=== PATIENT | female | born 1985 | race African-American/Black ===

== ENCOUNTER 2016-09-09 19:58 | Emergency (ER) | payer MEDICAID ==
[2016-09-09 20:53] VITALS: BP 139/78; PULSE 89; RESP 18; TEMP 98.1; O2SAT 97
--- NOTE | 2016-09-09 22:23 | UCPHY ---
H & P Time Seen by Provider: 09/09/16 20:36 Patient Type: New HPI/ROS: HPI Tingling in hands and feet. 31-year-old female by private vehicle. She reports that she has had intermittent tingling in both hands and both feet ongoing for 10 days to 2 weeks now. She reports that it is usually worse at night. She denies any loss of sensation or weakness in her extremities. She denies any other complaints. She is not diabetic. Past medical history includes pulmonary embolism for which she takes Xarelto. She has a primary care physician at [facility] who prescribes this medication. ROS: Constitutional: No fever, no chills. No weakness. Eyes: No discharge. No changes in vision. ENT: No sore throat. No nasal congestion or rhinorrhea. Respiratory: No cough. No shortness of breath. Cardiac: No chest pain, no palpitations. Gastrointestinal: No abdominal pain, no vomiting, no diarrhea. Genitourinary: No hematuria. No dysuria or increased frequency with urination. Musculoskeletal: No back pain. No neck pain. No myalgias or arthralgias. Skin: No rashes. Neurological: No headache. No focal weakness or loss of sensation. As above. Past medical history: As above. Social history: Smoker. Physical Exam: General Appearance: Alert, no distress. This patient is responding to questions appropriately and in full sentences. This patient appears well- hydrated and well-nourished. Eyes: Pupils equal and round no pallor or injection. No lid edema, erythema or injection. Neurological: Motor sensory function is intact in all myotomes in dermatomes of the bilateral upper and bilateral lower extremities. Cranial nerves are normal. Gait is normal. Skin: Warm and dry, no rashes. Musculoskeletal: Neck is supple and nontender. No pain on flexion of the neck. Extremities are symmetrical. All joints range without pain or impingement. Psychiatric: No agitation. No depression. Database: EKG: Imaging: Procedures: Emergency department course: After my evaluation, I reviewed the differential diagnosis regarding this patient complaints. Plan will be to have her follow up with Neurology, Dr. Jalen Hooper or 1 of his partners for re-evaluation this week. She is in agreement with this plan. I did discuss anxiety medications. She does not want this at this time. Return to emergency department precautions were reviewed. All of her questions were answered. She was discharged in good condition. Differential Diagnosis: The differential diagnosis on this patient includes but is not limited to anxiety reaction, peripheral neuropathy, MS. This represents a partial list of diagnoses considered. These considerations are based on history, physical exam , past history, reassessment and diagnostic testing. Smoking Status: Current every day smoker Constitutional: Initial Vital Signs Temperature (C) 36.7 C 09/09/16 20:50 Heart Rate 89 09/09/16 20:50 Respiratory Rate 18 09/09/16 20:50 Blood Pressure 139/78 H 09/09/16 20:50 O2 Sat (%) 97 09/09/16 20:50 O2 Delivery Mode Room Air Allergies/Adverse Reactions: ibuprofen [From Motrin] Allergy (Verified 09/09/16 20:48) Penicillins Allergy (Verified 09/09/16 20:48) Home Medications: Medication Instructions Recorded Omeprazole 09/09/16 Xarelto 09/09/16 Departure - Departure Disposition: Home, Routine, Self-Care Clinical Impression: Tingling in extremities Condition: Good Instructions: Paresthesia (ED) Additional Instructions: Read and follow provided instructions. Follow-up with Dr. Jalen Hooper of the neurology service this week as discussed for re-evaluation and any further management. You can see him or anyone of his partners. Continue taking your medication as prescribed. Return to the emergency department for worsening symptoms or other serious concerns. Referrals: NONE *PRIMARY CARE P,. [Primary Care Provider] - As per Instructions - PQRS PQRS Measurement: Not applicable.
== END 2016-09-09 22:45 | disposition home or self-care (01) ==
LOC: CED 19:58
DX: R20.2 Paresthesia of skin (principal); Z86.711 Personal history of pulmonary embolism; Z79.01 Long term (current) use of anticoagulants
CPT/HCPCS: 99203-PO; G0463-PO

== ENCOUNTER 2016-09-15 21:17 | Emergency (ER) | payer MEDICAID ==
--- NOTE | 2016-09-15 22:07 | UCPHY ---
H & P Time Seen by Provider: 09/15/16 21:54 Patient Type: Established HPI/ROS: CHIEF COMPLAINT: Black stools. Worry about Bismuth with the Xarelto. HISTORY OF PRESENT ILLNESS: The patient is a 31 year old female presenting with dark stools for the past 3 days. Last week she was diagnosed with H-pylori , she was started on Flagyl and tetracycline. She has a history of pulmonary embolism for which she takes Xarelto 15mg twice per day. She took 2 doses of Pepto-Bismol 3 days ago (Rx'd qid) for abdominal bloating and soft stool as part of the H pylroi Rx. Since stopping the Pepto-Bismol she has continued to have black/greyish stools, as it has been 3 d, she is worried. REVIEW OF SYSTEMS: Constitutional: No fever, no chills.. Gastrointestinal: No nausea vomiting or diarrhea. No abdominal pain. Skin: No rashes. Past Medical/Surgical History: Pulmonary embolism, H-pylori. Social History: Cigarette smoker. Smoking Status: Current every day smoker Physical Exam: General Appearance: Alert, no distress. Afebrile. Normal phonation. No respiratory distress. Apprehensive. Eyes: Pupils equal and round no pallor or injection. No palloer or icterus Respiratory: There are no retractions, lungs are clear to auscultation. Abdomen: mild epigastric tenderness. Rectal: No masses, no external hemorrhoids. Stark stool in vault, submitted for occult. . Skin: Warm and dry, no rashes. Psychiatric: Apprehensive, but there is no agitation Constitutional: Initial Vital Signs Temperature (C) 36.9 C 09/15/16 22:05 Heart Rate 92 09/15/16 22:05 Respiratory Rate 16 09/15/16 22:05 Blood Pressure 129/79 H 09/15/16 22:05 O2 Sat (%) 97 09/15/16 22:05 O2 Delivery Mode Room Air Allergies/Adverse Reactions: ibuprofen [From Motrin] Allergy (Verified 09/15/16 22:10) Penicillins Allergy (Verified 09/15/16 22:10) Home Medications: Medication Instructions Recorded Omeprazole 09/09/16 Xarelto 09/09/16 Lorazepam 09/15/16 Metronidazole 09/15/16 Tetracycline 09/15/16 Medical Decision Making ED Course/Re-evaluation: The patient presents with black stools for the past days. The patient has a history of PE and is anticoagulated on Xarelto. She was recently diagnosed with H-pylori and started on Flagyl. The patient took 2 doses of peptobismol 3 days ago. She has since continued to have black stools. Rectal exam was performed. Patient has no external hemorrhoids. She has stark colored stool in the vault that was sent for Hemoccult. Hemoccult is negative. Plan to discharge home with instructions to continue her regular medications. Her concern is apt regarding Bi salicylate with Xarelto, non signs of GI bleed. will continue Rx. Differential Diagnosis: Differential diagnosis includes but is not limited to Gi Bleed, Bi stools, alterationin bowel habit, dysentery, giardiasis. Departure - Departure Disposition: Home, Routine, Self-Care Clinical Impression: black stools from peptobismol Diarrhea Qualifiers: Diarrhea type: unspecified type Qualified Code(s): R19.7 - Diarrhea, unspecified Condition: Good Instructions: Acute Diarrhea (ED) Additional Instructions: No change in treament Referrals: Darlene Vasquez MD [Primary Care Provider] - As per Instructions - PQRS PQRS Measurement: NA Report Scribed for: Marino Herring Report Scribed by: Aida Gutierrez Date of Report: 09/15/16 Time of Report: 22:08
[2016-09-15 22:19] VITALS: RESP 16; TEMP 98.4; O2SAT 97
[2016-09-15 23:10] VITALS: BP 114/75; PULSE 89
== END 2016-09-15 23:05 | disposition home or self-care (01) ==
LOC: CED 21:17
DX: R19.5 Other fecal abnormalities (principal); T47.6X5A Adverse effect of antidiarrheal drugs, initial encounter; Z86.711 Personal history of pulmonary embolism; Z79.01 Long term (current) use of anticoagulants; B96.81 Helicobacter pylori [H. pylori] as the cause of diseases classified elsewhere
CPT/HCPCS: 82270-PO; G0463-PO

== ENCOUNTER → 2016-09-19 | Outpatient (CLI) | payer MEDICAID | LOC: FIMAGING 15:26 | PROVIDERS: ATTEND Family Medicine | DX: R22.32 Localized swelling, mass and lump, left upper limb (principal); Z86.711 Personal history of pulmonary embolism ==

== ENCOUNTER 2016-09-22 20:08 | Emergency (ER) | payer MEDICAID ==
[2016-09-22 20:19] VITALS: BP 129/77; PULSE 87; RESP 16; TEMP 98.2; O2SAT 98
[2016-09-22] MEDS ORDERED: IPRATROPIUM/ALBUTEROL 3 ML DEYVIAL IH ONE (20:44)
[2016-09-22] MEDS ORDERED: ALBUTEROL INH PREPACK MDI TAKEHOME ONE (21:26)
--- NOTE | 2016-09-22 21:41 | UCPHY ---
H & P Time Seen by Provider: 09/22/16 20:30 Patient Type: Established HPI/ROS: This patient reports a light cough with nasal congestion for the past 5 days and causing some slight chest pressure the concerns her because she was recently diagnosed with a pulmonary embolism 1 month ago [facility]. She reports compliance with her Xarelto and notes no significant dyspnea this episode but because recent history she is anxious. She does have a history of asthma but has not had asthma exacerbation 2 years and currently does not have an inhaler. She reports that discomfort in her chest as 6/10 and admits that it does feel bronchial to her. ROS: No fevers. No significant fatigue. HEENT: Nasal congestion but no other HEENT complaints. Pulmonary: No pleuritic pain. No significant dyspnea. Cardiovascular: No lightheadedness. No lower extremity swelling or pain. No heart palpitations. 10 point ROS is otherwise negative. Past Medical/Surgical History: Pulmonary embolism diagnosed 1 month ago thought to be secondary to a combination of smoking and control pills. She has no off the control pill and quit smoking. H pylori currently under treatment with antibiotics and omeprazole regimen. Mild asthma Smoking Status: Former smoker Physical Exam: Her vital signs are all normal including respiratory rate is 16 and O2 sat of 98 % on room air General Appearance: Pleasant young female Alert, no distress. Eyes: Pupils equal and round no pallor or injection. ENT, Mouth: Mucous membranes moist. Respiratory: Clear to auscultation. With cough she has a very faint expiratory wheeze. No rales or rhonchi. No increased work of breathing Cardiovascular: Regular rate and rhythm. No leg edema or tenderness. Gastrointestinal: Abdomen is soft and nontender Neurological: Alert with no focal deficits Skin: Warm and dry, no rashes. Musculoskeletal: Neck is supple nontender. Extremities are symmetrical, full range of motion. Psychiatric: Mood and affect normal DIFFERENTIAL DIAGNOSIS: After history and physical exam differential diagnosis was considered for URI with mild asthma exacerbation. Musculoskeletal pain, doubt PE related complications, doubt pneumonia Constitutional: Initial Vital Signs Temperature (C) 36.8 C 09/22/16 20:14 Heart Rate 87 09/22/16 20:14 Respiratory Rate 16 09/22/16 20:14 Blood Pressure 129/77 H 09/22/16 20:14 O2 Sat (%) 98 09/22/16 20:14 O2 Delivery Mode Room Air Allergies/Adverse Reactions: ibuprofen [From Motrin] Allergy (Verified 09/22/16 20:12) Penicillins Allergy (Verified 09/22/16 20:12) Home Medications: Medication Instructions Recorded Omeprazole 09/09/16 Xarelto 09/09/16 Lorazepam 09/15/16 Metronidazole 09/15/16 Tetracycline 09/15/16 Albuterol Hfa Anes Only [Proair 2 puffs IH Q4 PRN #1 mdi 09/22/16 Hfa Icu (*)] Fluticasone Hfa 220 Mcg [Flovent 2 puffs IH DAILY #1 mdi 09/22/16 220 MCG Hfa MDI (*)] MDM/Departure - MDM Diagnostics: Her initial peak flow slightly low at 400 with a predicted of 450 DuoNeb with resolution of pressure feeling in her chest. She felt more relaxed and feels that the cause of her symptoms was mild asthma. Given compliance with his or [place] and completely normal vital signs with no pleuritic pain and complete relief of her symptoms with a simple DuoNeb in the presence of coryza I feel that her diagnosis is a viral URI with mild asthma exacerbation and I counseled her regarding this. She is comfortable with plan to go home with albuterol and Flovent. She understands the need to go the emergency department if she developed any significant recurrence or worsening of symptoms despite the treatment plan. Medications Given: Discontinued Medications Albuterol Sulfate (Proventil Inh Prepack) 1 mdi TAKEHOME EDNOW ONE Stop: 09/22/16 21:27 Last Admin: 09/22/16 21:49 Dose: 1 mdi Albuterol/Ipratropium (Duoneb) 3 ml IH EDNOW ONE Stop: 09/22/16 20:45 Last Admin: 09/22/16 20:50 Dose: 3 ml - Depart Disposition: Home, Routine, Self-Care Clinical Impression: Asthma exacerbation, Viral URI Condition: Good Instructions: Albuterol (By breathing) Additional Instructions: Diagnosis: 1. URI 2. Asthma exacerbation Plan: Humidifier Albuterol inhaler for cough, wheeze or shortness of breath If your symptoms persist beyond the next 3-5 days despite the albuterol, then start the Flovent as well intake Flovent for 10-14 days. Continue your other medications as prescribed Go the emergency department for any significant worsening despite the treatment plan Prescriptions: Albuterol Hfa Anes Only [Proair Hfa Icu (*)] 2 puffs IH Q4 PRN #1 mdi PRN Reason: Wheezing Fluticasone Hfa 220 Mcg [Flovent 220 MCG Hfa MDI (*)] 2 puffs IH DAILY #1 mdi Referrals: Darlene Vasquez MD [Primary Care Provider] - As per Instructions - PQRS PQRS Measurement: NA
== END 2016-09-22 21:51 | disposition home or self-care (01) ==
LOC: CED 20:08
DX: J06.9 Acute upper respiratory infection, unspecified (principal); J45.901 Unspecified asthma with (acute) exacerbation; Z86.711 Personal history of pulmonary embolism; Z87.891 Personal history of nicotine dependence
CPT/HCPCS: 99214-PO; G0463-PO

== ENCOUNTER → 2016-09-23 | Outpatient (CLI) | payer MEDICAID ==
[~2016-09-23] MED LIST: GADOBUTROL 10 ML VIAL IVP ONE
== END ==
LOC: FIMAGING 12:18
PROVIDERS: ATTEND Physician Assistant Medical
DX: R20.0 Anesthesia of skin (principal); R20.2 Paresthesia of skin; R29.898 Other symptoms and signs involving the musculoskeletal system; I26.99 Other pulmonary embolism without acute cor pulmonale
CPT/HCPCS: A9585

== ENCOUNTER 2016-10-18 16:49 | Emergency (ER) | payer MEDICAID ==
--- NOTE | 2016-10-18 17:35 | EDPHY ---
H & P Time Seen by Provider: 10/18/16 17:22 HPI/ROS: CHIEF COMPLAINT: Eye blurriness and pain HISTORY OF PRESENT ILLNESS: The patient is a 31 y/o female, with a history of anxiety and recent diagnosis of MS, complaining of worsening left eye blurriness and pain. She was diagnosed with multiple sclerosis 3 weeks ago. She has a 6 week h/o symptoms including extremity paresthesias and is followed by Dr. Hooper' clinic. She developed left eye blurriness a few days ago and was evaluated by neurologist REBECCA Lara. He recommended treating for allergies, but following it closely for any progression. This afternoon she woke from a nap with left eye pain and blurriness that did not resolve with eye drops. Her neurologist referred her to the ED for MRI imaging. The blurriness has resolved , but she continues to have pain around and behind her left eye. She notes she took a 50mg dose of her Zoloft last night and developed significant anxiety that caused her to go to the ED. REVIEW OF SYSTEMS: Constitutional: No fever, no chills Eyes: see HPI ENT: No sore throat Respiratory: No cough, no shortness of breath Cardiac: No chest pain Gastrointestinal: No nausea, no vomiting, no abdominal pain Genitourinary: No hematuria, no dysuria Musculoskeletal: No leg pain or swelling Skin: No rash Neurological: see HPI Psychiatric: see HPI Past Medical/Surgical History: PMH includes: 1. Multiple sclerosis - Tecfidera, Zoloft 2. Anxiety 3. PE Prior medical records reviewed including [facility] [place]/09/16 for paresthesias and Brain MRI 09/23/16, which showed probable MS. Social History: Former smoker. Neurology: REBECCA Lara with Dr. Hooper Smoking Status: Former smoker Physical Exam: General Appearance: Alert, anxious Eyes: Pupils equal and round, no conjunctival pallor or injection, EOMI ENT, Mouth: Mucous membranes moist Neck: Normal inspection Respiratory: Lungs are clear to auscultation Cardiovascular: Regular rate and rhythm Gastrointestinal: Abdomen is soft and non-tender Neurological: A&O, CN II-XII intact, motor/sensory intact, normal gait Skin: Warm and dry, no rash Extremities: Nontender, no pedal edema Psychiatric: anxious Constitutional: Initial Vital Signs Temperature (C) 36.7 C 10/18/16 17:05 Heart Rate 98 10/18/16 17:05 Respiratory Rate 18 10/18/16 17:05 Blood Pressure 127/82 H 10/18/16 17:05 O2 Sat (%) 98 10/18/16 17:05 O2 Delivery Mode Room Air Allergies/Adverse Reactions: Penicillins Allergy (Intermediate, Verified 10/18/16 17:03) Hives Home Medications: Medication Instructions Recorded Omeprazole 09/09/16 Xarelto 09/09/16 Albuterol Hfa Anes Only [Proair 2 puffs IH Q4 PRN #1 mdi 09/22/16 Hfa Icu (*)] Dimethyl Fumarate [Tecfidera] 1 each PO 10/18/16 Sertraline HCl [Zoloft 25mg (*)] 25 mg PO DAILY 10/18/16 Medical Decision Making - Diagnostics Imaging Results: MRI of the brain read by the radiologist reveals no new MS lesions. Imaging: Discussed imaging studies w/ scallop binder Radiologist ED Course/Re-evaluation: This is a 31 y/o female with a recent diagnosis of MS who presents with a few day history of left eye blurriness and left eye pain onset this afternoon. She arrives at the referral of her neurologist for MRI imaging, though she is not sure what study. She is neurovascularly intact on exam. Plan to consult neurology. 1743: Consulted with Dr. Klein, neurology. He recommends Brain MRI with and without IV contrast with note for radiologist to review orbit as well. 2010: Brain MRI is unchanged from 09/23/16 per radiologist. I discussed these findings with the patient. I recommended follow up with her neurologist on Saturday. Strict return precautions given. She is comfortable with this plan. Differential Diagnosis: includes though not limited to optic neuritis, corneal FB, glaucoma, iritis, conjunctivitis - Data Points Medications Given: Discontinued Medications Lorazepam (Ativan Injection) 1 mg IVP EDNOW ONE Stop: 10/18/16 18:08 Last Admin: 10/18/16 18:16 Dose: 1 mg Departure - Departure Disposition: Home, Routine, Self-Care Clinical Impression: Multiple sclerosis Condition: Good Instructions: Autoimmune Disease (ED) Additional Instructions: 1. Your brain MRI is unchanged from previous. There is no evidence of optic neuritis. 2. Please follow up with your neurologist on Saturday. 3. Return to the ED for vision changes, severe pain, or other worsening of condition. Referrals: Darlene Vasquez MD [Primary Care Provider] - As per Instructions Carlyle Lara PA [Physician Rn Otolaryngology] - As per Instructions Report Scribed for: Aleyda Corral Report Scribed by: Flor Carrasco Date of Report: 10/18/16 Time of Report: 17:38 Physician Review and Approval Statement: 10/18/16 17:38 Portions of this note were transcribed by a manager medical affairs. I personally performed a history, physical exam, medical decision making, and confirmed accuracy of information the transcribed note.
[2016-10-18] MEDS ORDERED: LORazepam 2 MG/ML INJ IVP ONE (18:07)
[2016-10-18] MEDS ORDERED: GADOBUTROL 10 ML VIAL IVP ONE (18:33)
[2016-10-18 19:26] VITALS: PULSE 75; RESP 16
[2016-10-18 20:24] VITALS: BP 110/73; TEMP 97.9; O2SAT 95
== END 2016-10-18 20:24 | disposition home or self-care (01) ==
DX: G35 Multiple sclerosis (principal); Z79.01 Long term (current) use of anticoagulants; Z87.891 Personal history of nicotine dependence
CPT/HCPCS: 96374; A9585; J2060

== ENCOUNTER 2016-10-21 19:54 | Emergency (ER) | payer MEDICAID ==
--- NOTE | 2016-10-21 20:06 | EDPHY ---
H & P Time Seen by Provider: 10/21/16 20:05 HPI/ROS: 31-year-old female presents complaining Several episodes of near syncope that began yesterday, and severe nausea this afternoon. She is also noted that she is having her 2nd period this month. She was recently diagnosed with multiple sclerosis and is started on a medicine approximately 8 days ago, she doubled the dose yesterday. She had noted on the smaller dose that she was often having flushing and some dizziness. She also has a recent history of pulmonary embolus for which she is on Xarelto , she currently denies shortness of breath chest pain leg swelling or leg pain. Review of systems As per HPI General no fever no chills no weakness HEENT no eye pain no eye discharge. No eye redness, no sore throat Respiratory no cough, no shortness of breath Cardiac no chest pain, no peripheral edema GI no abdominal pain, no diarrhea, no constipation, positive nausea, no vomiting no flank pain, no hematuria, no dysuria Musculoskeletal no myalgias, no joint pain Heme no easy bruising, no easy bleeding Endo no polyuria, no polydipsia Skin no rashes, no pruritus Neuro no syncope, no dizziness, no headaches Psych is no suicidal ideation, no homicidal ideation Source: Patient Exam Limitations: No limitations - Personal History LMP (Females 10-55): Now Current Tetanus/Diphtheria Vaccine: Yes Tetanus Vaccine Date: 2015 - Medical/Surgical History Hx Asthma: Yes Hx Chronic Respiratory Disease: No Hx Diabetes: No Hx Cardiac Disease: No Hx Renal Disease: No Hx Cirrhosis: No Hx Alcoholism: No Hx HIV/AIDS: No Hx Splenectomy or Spleen Trauma: No Other PMH: Med hx-PE-08/27/2016,h-pylori-09/11/2016, MS. Surg-c-sect - Family History Significant Family History: No pertinent family hx - Social History Smoking Status: Former smoker Alcohol Use: None Drug Use: None - Physical Exam Exam: 31-year-old female alert and oriented no acute distress nontoxic appearance HEENT atraumatic normocephalic, extraocular muscles intact, anicteric Oropharynx negative for erythema negative exudate, tolerating her own secretions Neck supple no meningismus Lungs clear to auscultation bilaterally Heart regular rate and rhythm without murmur rub or gallop Abdomen nondistended normoactive bowel sounds soft nontender Back no CVA tenderness, no step-offs, no spinal tenderness Extremities no cyanosis clubbing or edema Neuro alert and oriented, no focal deficits Constitutional: Initial Vital Signs Temperature (C) 36.4 C 10/21/16 20:00 Heart Rate 86 10/21/16 20:00 Respiratory Rate 16 10/21/16 20:00 Blood Pressure 115/87 H 10/21/16 20:00 O2 Sat (%) 96 10/21/16 20:00 O2 Delivery Mode Room Air Allergies/Adverse Reactions: Penicillins Allergy (Intermediate, Verified 10/18/16 17:03) Hives Home Medications: Medication Instructions Recorded Omeprazole 09/09/16 Xarelto 09/09/16 Albuterol Hfa Anes Only [Proair 2 puffs IH Q4 PRN #1 mdi 09/22/16 Hfa Icu (*)] Dimethyl Fumarate [Tecfidera] 1 each PO 10/18/16 Sertraline HCl [Zoloft 25mg (*)] 25 mg PO DAILY 10/18/16 Medical Decision Making ED Course/Re-evaluation: Patient seen and evaluated for multiple episodes of near syncope, nausea. Lab sent beta HCG qualitative negative CBC within normal limits, specifically no leukopenia CMP, TSH within normal limits Differential diagnosis considered dehydration, medication reaction, MS exacerbation, ,gastroenteritis patient given IV fluids Zofran 4 mg IV push impression near syncope, likely medication reaction plan follow up with PCP and neurologist for further plan in terms of medications - Data Points Laboratory Results: Laboratory Results 10/21/16 20:20 10/21/16 20:20 10/21/16 10/21/16 10/21/16 21:00 20:20 20:20 WBC RBC Hgb Hct MCV MCH MCHC RDW Plt Count MPV Neut % (Auto) Lymph % (Auto) Saline % (Auto) Eos % (Auto) Baso % (Auto) Nucleat RBC Rel Count Absolute Neuts (auto) Absolute Lymphs (auto) Absolute Monos (auto) Absolute Eos (auto) Absolute Basos (auto) Absolute Nucleated RBC Immature Gran % Immature Gran # Sodium 145 mEq/L H mEq/L (134-144) Potassium 3.9 mEq/L mEq/L (3.5-5.2) Chloride 102 mEq/L mEq/L (97-110) Carbon Dioxide 25 mEq/l mEq/l (22-31) Anion Gap 18 mEq/L H mEq/L (8-16) BUN 6 mg/dL L mg/dL (7-23) Creatinine 1.0 mg/dL mg/dL (0.6-1.0) Estimated GFR > 60 Glucose 99 mg/dL mg/dL (70-100) Calcium 9.6 mg/dL mg/dL (8.5-10.4) Total Bilirubin 0.8 mg/dL mg/dL (0.1-1.4) AST 27 IU/L IU/L (14-46) ALT 35 IU/L IU/L (9-52) Alkaline Phosphatase 82 IU/L IU/L (38-126) Total Protein 8.5 g/dL H g/dL (6.3-8.2) Albumin 4.4 g/dL g/dL (3.5-5.0) Lipase 139.0 IU/L IU/L (23-300) TSH 1.820 uIU/mL uIU/mL (0.465-4.680) Beta HCG, Qual NEGATIVE Urine Color YELLOW Urine Appearance HAZY Urine pH 7.0 (5.0-7.5) Ur Specific Hickman 1.010 (1.002-1.030) Urine Protein NEGATIVE (NEGATIVE) Urine Ketones NEGATIVE (NEGATIVE) Urine Blood 3+ H (NEGATIVE) Urine Nitrate NEGATIVE (NEGATIVE) Urine Bilirubin NEGATIVE (NEGATIVE) Urine Urobilinogen 0.2 EU EU (0.2-1.0) Ur Leukocyte Esterase NEGATIVE (NEGATIVE) Urine RBC 5-10 /hpf H /hpf (0-3) Urine WBC 3-5 /hpf H /hpf (0-3) Ur Epithelial Cells 1+ /lpf /lpf (NONE-1+) Urine Bacteria 2+ /hpf H /hpf (NONE SEEN) Urine Glucose NEGATIVE (NEGATIVE) 10/21/16 20:20 WBC 6.01 10^3/uL 10^3/uL (3.80-9.50) RBC 5.18 10^6/uL 10^6/uL (4.18-5.33) Hgb 14.7 g/dL g/dL (12.6-16.3) Hct 45.8 % % (38.0-47.0) MCV 88.4 fL fL (81.5-99.8) MCH 28.4 pg pg (27.9-34.1) MCHC 32.1 g/dL L g/dL (32.4-36.7) RDW 12.0 % % (11.5-15.2) Plt Count 351 10^3/uL 10^3/uL (150-400) MPV 9.4 fL fL (8.7-11.7) Neut % (Auto) 48.8 % % (39.3-74.2) Lymph % (Auto) 37.4 % % (15.0-45.0) Saline % (Auto) 11.5 % % (4.5-13.0) Eos % (Auto) 1.3 % % (0.6-7.6) Baso % (Auto) 0.7 % % (0.3-1.7) Nucleat RBC Rel Count 0.0 % % (0.0-0.2) Absolute Neuts (auto) 2.93 10^3/uL 10^3/uL (1.70-6.50) Absolute Lymphs (auto) 2.25 10^3/uL 10^3/uL (1.00-3.00) Absolute Monos (auto) 0.69 10^3/uL 10^3/uL (0.30-0.80) Absolute Eos (auto) 0.08 10^3/uL 10^3/uL (0.03-0.40) Absolute Basos (auto) 0.04 10^3/uL 10^3/uL (0.02-0.10) Absolute Nucleated RBC 0.00 10^3/uL 10^3/uL (0-0.01) Immature Gran % 0.3 % % (0.0-1.1) Immature Gran # 0.02 10^3/uL 10^3/uL (0.00-0.10) Sodium Potassium Chloride Carbon Dioxide Anion Gap BUN Creatinine Estimated GFR Glucose Calcium Total Bilirubin AST ALT Alkaline Phosphatase Total Protein Albumin Lipase TSH Beta HCG, Qual Urine Color Urine Appearance Urine pH Ur Specific Hickman Urine Protein Urine Ketones Urine Blood Urine Nitrate Urine Bilirubin Urine Urobilinogen Ur Leukocyte Esterase Urine RBC Urine WBC Ur Epithelial Cells Urine Bacteria Urine Glucose Medications Given: Discontinued Medications Sodium Chloride (Ns) 1,000 mls @ 0 mls/hr IV ONCE ONE PRN Reason: Wide Open Stop: 10/21/16 20:26 Last Admin: 10/21/16 20:20 Dose: 1,000 mls Sodium Chloride (Ns) 1,000 mls @ 0 mls/hr IV ONCE ONE PRN Reason: Wide Open Stop: 10/21/16 21:42 Last Admin: 10/21/16 21:43 Dose: 1,000 mls Ondansetron HCl (Zofran) 4 mg IVP EDNOW ONE Stop: 10/21/16 20:26 Last Admin: 10/21/16 20:28 Dose: 4 mg Departure - Departure Disposition: Home, Routine, Self-Care Clinical Impression: Nausea, Near syncope, Medication reaction Condition: Good Instructions: Acute Nausea and Vomiting (ED), Near Syncope (ED) Referrals: Darlene Vasquez MD [Primary Care Provider] - As per Instructions
[2016-10-21 20:13] VITALS: RESP 16
[2016-10-21] MEDS ORDERED: NS 1,000 ML IV ONE ×2 (20:25→21:41)
[2016-10-21] MEDS ORDERED: ONDANSETRON 4 MG/2 ML VIAL IVP ONE (20:25)
[2016-10-21 20:34] LABS: % IMMATURE GRANULYOCYTES 0.3 % (0.0-1.1); ABSOLUTE IMMATURE GRANULOCYTES 0.02 10^3/uL (0.00-0.10); ADD DIFF? NO; ADD MORPH? NO; ADD SCAN? NO; ATYPICAL LYMPHOCYTE FLAG 10 (0-99); FRAGMENT RBC FLAG 0 (0-99); HEMATOCRIT 45.8 % (38.0-47.0); HEMOGLOBIN 14.7 g/dL (12.6-16.3); LEFT SHIFT FLG 0 (0-99); LIPEMIA HEMOLYSIS FLAG 80 (0-99); MEAN CELL HEMOGLOBIN 28.4 pg (27.9-34.1); MEAN CELL HEMOGLOBIN CONCENTR. 32.1 g/dL (32.4-36.7); MEAN CELL VOLUME 88.4 fL (81.5-99.8); MEAN PLATELET VOLUME 9.4 fL (8.7-11.7); PLATELET CLUMPS FLAG 10 (0-99); PLATELET COUNT 351 10^3/uL (150-400); RED BLOOD CELL COUNT 5.18 10^6/uL (4.18-5.33)
[2016-10-21 21:04] LABS: COLOR YELLOW; LEUKOCYTE ESTERASE,URINE NEGATIVE (NEGATIVE); NITRITE,URINE NEGATIVE (NEGATIVE)
[2016-10-21 21:04] LABS: ALANINE AMINOTRANSFERASE 35 IU/L (9-52); ALBUMIN 4.4 g/dL (3.5-5.0); ALKALINE PHOSPHATASE 82 IU/L (38-126); ANION GAP 18 mEq/L (8-16); ASPARTATE AMINOTRANSFERASE 27 IU/L (14-46); BILIRUBIN,TOTAL 0.8 mg/dL (0.1-1.4); CALCIUM 9.6 mg/dL (8.5-10.4); CARBON DIOXIDE 25 mEq/l (22-31); CHLORIDE 102 mEq/L (97-110); GLOMERULAR FILTRATION RATE > 60; GLUCOSE 99 mg/dL (70-100); POTASSIUM 3.9 mEq/L (3.5-5.2); SODIUM 145 mEq/L (134-144); TOTAL PROTEIN 8.5 g/dL (6.3-8.2)
[2016-10-21 21:14] VITALS: O2SAT 98
[2016-10-21 21:26] LABS: BACTERIA 2+ /hpf (NONE SEEN)
[2016-10-21 21:45] VITALS: BP 118/90; PULSE 94
[2016-10-21 22:25] VITALS: TEMP 97.9
== END 2016-10-21 22:38 | disposition home or self-care (01) ==
LOC: CED 19:54
DX: R55 Syncope and collapse (principal); R11.0 Nausea; J45.909 Unspecified asthma, uncomplicated; T50.905A Adverse effect of unspecified drugs, medicaments and biological substances, initial encounter; Z79.01 Long term (current) use of anticoagulants; Z87.891 Personal history of nicotine dependence
CPT/HCPCS: 80053-PO; 81003-PO; 81015-PO; 83690-PO; 84443-PO; 84703-PO; 85025-PO; 96374; J2405

== ENCOUNTER 2016-10-23 00:44 | Emergency (ER) | payer MEDICAID ==
[2016-10-23] MEDS ORDERED: ONDANSETRON 4 MG/2 ML VIAL ONE (01:17)
[2016-10-23] MEDS ORDERED: LORazepam 2 MG/ML INJ ONE (01:18)
[2016-10-23] MEDS ORDERED: ONDANSETRON 4 MG/2 ML VIAL IVP ONE (01:28)
[2016-10-23] MEDS ORDERED: LORazepam 2 MG/ML INJ IVP ONE (01:28)
[2016-10-23 01:35] VITALS: TEMP 98.4
--- NOTE | 2016-10-23 01:37 | EDPHY ---
H & P HPI/ROS: This 31-year-old female with past medical history of recently diagnosed multiple sclerosis presents to the emergency department tonight with what she feels is intolerance of her medication. She was diagnosed with multiple sclerosis about a month ago. She states the symptoms had started to resolve and she was quite active physically with yoga and walks. But she also had what she calls a relapse where she was having some confusion and disorientation. About a week ago she was started on Zoloft for her anxiety by her primary care provider. Also about 10 days ago she was started on a tapering dose of Tecfidera. She states when she got up to the 240 mg dose she started forgetting her words. She also started experiencing flushing, feeling like her ears were hot and her chest was warm as well as indigestion. She was seen in the ER 10/21/16 for near syncope and severe nausea. She had an unremarkable work up on that date including CBC, CMP, TSH, UA and HCG and discharged after IVF and Zofran. The patient states she talked to her Neurology provider yesterday about her concerns of taking the higher dose of this medication and she was advised to only take the pill once a day instead of twice a day. She has a follow-up with Neurology at 10:30 a.m. this coming morning. After taking the Tecfidera at 4:30 p.m. her nausea increased and she felt very lightheaded. She thought she needed something to eat so she had some spaghetti which she promptly vomited up. She fell asleep but when she woke up she still felt nauseated and had dry heaves. When she tried to stand up her legs felt weak and her lateral thighs felt tight and tingly. Her right foot also felt tingly. She felt like her legs were heavy and she could not lift her feet. She became very anxious and had her boyfriend bring her to the emergency room. Of note the patient did have a repeat MRI of her brain with and without contrast on 10/18/2016. The impression was stable periventricular and deep MS ferric white matter lesions, which can be seen with demyelinating disease such as multiple sclerosis as given by history. No evidence for a new lesion or abnormal enhancement. Normal MRI of the orbits and optic nerves. REVIEW OF SYSTEMS: Constitutional: No fever, no chills. Eyes: No discharge. ENT: No sore throat. Respiratory: No cough, no shortness of breath. Cardiac: No chest pain, no palpitations. Gastrointestinal: No abdominal pain. Genitourinary: No hematuria. Musculoskeletal: No back pain. Skin: No rashes. Neurological: No headache. Source: Patient Exam Limitations: No limitations - Personal History Tetanus Vaccine Date: 2015 - Medical/Surgical History Hx Asthma: Yes Hx Chronic Respiratory Disease: No Hx Diabetes: No Hx Cardiac Disease: No Hx Renal Disease: No Hx Cirrhosis: No Hx Alcoholism: No Hx HIV/AIDS: No Hx Splenectomy or Spleen Trauma: No Other PMH: Med hx-PE-08/27/2016,h-pylori-09/11/2016, MS. Surg-c-sect - Family History Significant Family History: No pertinent family hx - Social History Smoking Status: Former smoker Alcohol Use: None Drug Use: None - Physical Exam Exam: General Appearance: Alert, very anxious and tearful. Eyes: Pupils equal and round no pallor or injection. ENT, Mouth: Mucous membranes moist. Respiratory: There are no retractions, lungs are clear to auscultation. Cardiovascular: Regular rate and rhythm. Gastrointestinal: Abdomen is soft and nontender, no masses, bowel sounds normal. Neurological: [CN II-XII grossly intact, FTN intact, nml alternating movements , no pronator drift, Strength 5/5 BUE, slightly weak flexion of lower extremities against resistance but good dorsiflexion of bilateral great toes. Subjective decreased sensation upper lateral thighs bilaterally. DTRs 2/4 at patella and brachioradialis bilaterally ] Skin: Warm and dry, no rashes. Musculoskeletal: Neck is supple nontender. Extremities are symmetrical, full range of motion. Psychiatric: Patient is oriented X 3, anxious. DIFFERENTIAL DIAGNOSIS: After history and physical exam differential diagnosis was considered for [ cauda equina syndrome unlikely, medication reaction likely , multiple sclerosis likely, anxiety likely, electrolyte abnormality unlikely with recent labs] Constitutional: Initial Vital Signs Temperature (C) 36.9 C 10/23/16 01:08 Heart Rate 104 H 10/23/16 01:08 Respiratory Rate 14 10/23/16 01:08 Blood Pressure 131/102 H 10/23/16 01:08 O2 Sat (%) 97 10/23/16 01:08 O2 Delivery Mode Room Air Allergies/Adverse Reactions: Penicillins Allergy (Intermediate, Verified 10/23/16 01:06) Hives Home Medications: Medication Instructions Recorded Omeprazole 09/09/16 Xarelto 09/09/16 Albuterol Hfa Anes Only [Proair 2 puffs IH Q4 PRN #1 mdi 09/22/16 Hfa Icu (*)] Dimethyl Fumarate [Tecfidera] 1 each PO 10/18/16 Sertraline HCl [Zoloft 25mg (*)] 25 mg PO DAILY 10/18/16 Tecfidera 10/23/16 Medical Decision Making ED Course/Re-evaluation: The patient feels much improved after 0.5 mg Ativan IV push and Zofran 4 mg IV push. She is ambulating much more steadily with nursing at her side. I have reviewed her recent ER visit as well as her past and recent MRIs. I am comfortable the patient be safely discharged to follow up with her neurologist at 10:30 a.m. this morning. She was discharged in the care of her boyfriend. - Data Points Medications Given: Discontinued Medications Lorazepam (Ativan Injection) 0.5 mg IVP EDNOW ONE Stop: 10/23/16 01:29 Last Admin: 10/23/16 01:25 Dose: 0.5 mg Ondansetron HCl (Zofran) 4 mg IVP EDNOW ONE Stop: 10/23/16 01:29 Last Admin: 10/23/16 01:24 Dose: 4 mg Departure - Departure Disposition: Home, Routine, Self-Care Clinical Impression: Anxiety about health, Multiple sclerosis, Medication reaction Condition: Good Instructions: Sertraline (By mouth), Dimethyl Fumarate (By mouth), Self-Care Measures with a Chronic Disease (ED), Anxiety (ED) Additional Instructions: Follow up with REBECCA Ross tomorrow at 10:30am as scheduled and discuss your symptoms and your concerns about the Tecfidera. Return to the ER if any further problems or concerns. Referrals: Patient,NotPresent [Unknown] - As per Instructions
[2016-10-23 02:13] VITALS: O2SAT 95
[2016-10-23] MEDS ORDERED: ONDANSETRON 4MG PREPACK#2 BTL TAKEHOME ONE (02:39)
[2016-10-23 03:14] VITALS: BP 102/62; PULSE 75; RESP 12
== END 2016-10-23 04:04 | disposition home or self-care (01) ==
LOC: SUPCPDRO 00:44 → CED 00:44
DX: F41.9 Anxiety disorder, unspecified (principal); G35 Multiple sclerosis
CPT/HCPCS: 96374; J2060; J2405

== ENCOUNTER 2016-11-03 20:03 | Emergency (ER) | payer MEDICAID ==
[2016-11-03 20:11] VITALS: RESP 16; TEMP 98.8
[2016-11-03] MEDS ORDERED: ACETAMINOPHEN 325 MG TAB PO ONE (20:52)
--- NOTE | 2016-11-03 21:20 | EDPHY ---
H & P Time Seen by Provider: 11/03/16 20:36 HPI/ROS: CHIEF COMPLAINT: Tingling in the legs and pain in the extremities HISTORY OF PRESENT ILLNESS: I reviewed previous records including emergency department visit to Dr. Gomez on October 23 of this year. She was diagnosis with multiple sclerosis about a month ago. She was seen on the for leg weakness and tingling in her right foot. Her last MRI scan was on October 18 of this year which showed a stable appearance suggestive of multiple sclerosis. She did stop her previous medication and started on Copaxone on . She has not sustained any recent fall injury or trauma. She presents tonight with tingling in her legs and pain in all 4 extremities and tingling in her arms. She has some pressure in both ears right greater than left and feeling of being hot and having pressure behind her eyes with a very mild headache which was the identical symptoms she presented with at the time she was diagnosed with multiple sclerosis. REVIEW OF SYSTEMS: Eye: no change in vision ENT: no sore throat, ear symptoms as above Cardiac: no chest pain or syncope Pulmonary: no cough or SOB Abdomen: no vomiting, diarrhea, abdominal pain Musculoskeletal: no back pain Skin: no rash Neuro: Headache is not severe or worst of life. No neck pain. No weakness or numbness in extremities. Constitutional: no fever : no urinary symptoms A comprehensive 10 point review of systems is otherwise negative aside from elements mentioned in the history of present illness. PAST MEDICAL HISTORY: Includes multiple sclerosis and pulmonary embolism, depression and asthma. Currently on Xarelto. Social history: Nonsmoker General Appearance: Alert and conversant, cooperative. Eyes: No scleral icterus. Extraocular motion intact. ENT, Mouth: Normal mucous membranes. Pharynx is normal, tympanic membranes are normal, ear canal is normal. Face is not swollen or tender to palpation. Respiratory: Normal respiratory effort, breath sounds equal, lungs are clear to auscultation. Cardiovascular: Regular rate and rhythm. Gastrointestinal: Abdomen is soft and non tender. Neurological: Alert and oriented x3. Normally conversant. Face symmetric, normal movement and sensation in all extremities. Skin: Warm and dry, no rashes. Musculoskeletal: No peripheral edema and no joint swelling. Neck is supple with normal range of motion. I can range her hips and knees and ankles. She has good range of motion of upper extremities. No joint effusions. Compartments are soft in upper and lower extremities bilaterally. Psychiatric: She does seem upset and mildly anxious but otherwise normal. Emergency Department course/MDM: Discussed with Dr. Gerson Canseco. Agree does not seem emergent, could be reaction to Copaxone. Patient was treated with oral acetaminophen and no nonsteroidals because of her Xarelto. I think intracranial hemorrhage or bleeding would be unlikely. I told the patient that I thought the most reasonable thing is for her to call tomorrow morning at 8:00 a.m. and speak to the on-call neurologist for her practice. I think it is unlikely that she is having an acute emergent medical condition tonight. Differential discussed with her including but not limited to viral syndrome, Copaxone reaction, multiple sclerosis. I do not think she has septic arthritis or rhabdomyolysis or meningitis. Compartments are soft Smoking Status: Former smoker Constitutional: Initial Vital Signs Temperature (C) 37.1 C 11/03/16 20:07 Heart Rate 77 11/03/16 20:07 Respiratory Rate 16 11/03/16 20:07 Blood Pressure 111/74 11/03/16 20:07 O2 Sat (%) 97 11/03/16 20:07 O2 Delivery Mode Room Air Allergies/Adverse Reactions: Penicillins Allergy (Intermediate, Verified 11/03/16 20:11) Hives Home Medications: Medication Instructions Recorded Omeprazole 09/09/16 Xarelto 09/09/16 Albuterol Hfa Anes Only [Proair 2 puffs IH Q4 PRN #1 mdi 09/22/16 Hfa Icu (*)] Sertraline HCl [Zoloft 25mg (*)] 25 mg PO DAILY 10/18/16 Copaxone 11/03/16 Medical Decision Making - Data Points Medications Given: Discontinued Medications Acetaminophen (Tylenol) 650 mg PO EDNOW ONE Stop: 11/03/16 20:53 Last Admin: 11/03/16 20:58 Dose: 650 mg Oxycodone HCl (Oxycodone Ir) 5 mg PO EDNOW ONE Stop: 11/03/16 21:26 Last Admin: 11/03/16 21:30 Dose: 5 mg Departure - Departure Disposition: Home, Routine, Self-Care Clinical Impression: Multiple sclerosis Condition: Good Instructions: Glatiramer (By injection) Additional Instructions: Call associated neurologists tomorrow morning at 8:00 a.m. and ask to speak to the physician debone processing supervisor. Remind them that your a patient of [facility]. Referrals: Darlene Vasquez MD [Primary Care Provider] - As per Instructions Carlyle Lara PA [Physician Lubrication Supervisor] - As per Instructions
[2016-11-03] MEDS ORDERED: oxyCODONE IR 5 MG TAB PO ONE (21:25)
[2016-11-03 21:35] VITALS: BP 105/68; PULSE 69; O2SAT 96
== END 2016-11-03 21:34 | disposition home or self-care (01) ==
DX: G35 Multiple sclerosis (principal); Z79.01 Long term (current) use of anticoagulants; Z87.891 Personal history of nicotine dependence

== ENCOUNTER 2016-11-10 00:05 | Emergency (ER) | payer MEDICAID ==
[2016-11-10] MEDS ORDERED: diphenhydrAMINE 25 MG CAP PO ONE (00:17)
[2016-11-10 00:21] VITALS: TEMP 97.7
--- NOTE | 2016-11-10 01:04 | EDPHY ---
H & P Stated Complaint: Possible serotonin syndrome after Fentanyl/Reglan 1300 hrs today. Time Seen by Provider: 11/10/16 00:33 HPI/ROS: CHIEF COMPLAINT: possible drug interaction of her taking Reglan at 1:00 p.m. today in the setting of recent Cymbalta initiation HISTORY OF PRESENT ILLNESS: this is a 31-year-old female who had a rough couple of months. This past August she was diagnosis with pulmonary embolus in the setting of PCP use and should be on Xarelto until the end of November. Further, she had a diagnosis of H pylori and completed a course of high-dose omeprazole therapy with antibiotics, again this past August. He is now on omeprazole 20 mg twice daily. She did have trouble back in the day with some water brash but now concurrently none. She evidently presented to a nearby local hospital based emergency department for the GI symptoms as outlined below. While better in the setting of taking some Reglan as well as IV fluids she started having trouble this evening as she went to go to bed at around 10:00 p.m.. This consisted of a jitteriness in her legs and a tremor in her legs. She 1st checked with her PCP but did not get through. Then she checked with a Call line affiliated with her neurologist who suggested that the combination of Reglan in the setting of Zoloft/Cymbalta therapy could be responsible for a serotonin syndrome thus directed to go to a nearby ER. She elected to come here as she has had occasional to frequent visits to this ER, previously as a was in urgent care. In point of fact, I saw her for anxiety symptoms related to dark stools this past August. While she does have anxiety syndrome she notes that is typically a palpitations sense of heart racing. While she can feel her heart beat she does not feel it is beating unusually fast. She did not take any Ativan, I do not believe she has any. She has been dropped off. As to her GI symptoms or earlier this week that started on November 07, some 48 hours ago. For the next subsequent 36 hours she had a sense that she could swallow well though has no pain or the things getting hung up with swallowing. She has some water brash symptomatology as well as casual dry heaves. There is some epigastric pain as well. She presented to a local ER, was treated with IV Reglan and bag of IV fluids and was notably better thus released. She did not require any diagnostic imaging such as ultrasound or CT scan. She notes the symptoms consistently have been checked since the administration of Reglan. Medication regimen gets little complicated. The Copaxone is new for her, in the last 3 days. Further, her 1st dose of Cymbalta was the morning of the . As to her Zoloft, had been decreased from 50-25 mg approximately 9 days ago and then discontinued completely approximately 3 days ago. REVIEW OF SYSTEMS: Constitutional: No fever, no chills. Eyes: No discharge No diplopia ENT: No sore throat. Cardiovascular: No chest pain, though aware of heartbeats she does not feel to be beating fast, nor irregular Respiratory: No cough, shortness of breath, or wheezing. Gastrointestinal: See above. Genitourinary: No hematuria or frequency. Musculoskeletal: No back pain. Skin: No rashes. Neurological: No headache. 10 point ROS otherwise negative Source: Patient Exam Limitations: No limitations - Personal History LMP (Females 10-55): Irregular Current Tetanus/Diphtheria Vaccine: Yes Current Tetanus Diphtheria and Acellular Pertussis (TDAP): Yes Tetanus Vaccine Date: 2015 - Medical/Surgical History Hx Asthma: Yes Hx Chronic Respiratory Disease: No Hx Diabetes: No Hx Cardiac Disease: No Hx Renal Disease: No Hx Cirrhosis: No Hx Alcoholism: No Hx HIV/AIDS: No Hx Splenectomy or Spleen Trauma: No Other PMH: Med hx-PE-08/27/2016 - Xarelto until end of November. H-pylori-09/11/2016 - now on Omeprazole 20 mg bid. 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 Depression Anxiety Asthma. Surg-c-sect - Family History Significant Family History: No pertinent family hx - Social History Smoking Status: Former smoker Alcohol Use: None Drug Use: None - Physical Exam Exam: General Appearance: Alert, black female, no hemodynamic distress. Afebrile. Normal phonation. No respiratory distress. There is no diaphoresis. Membranes have good color, no pallor. Eyes: Pupils equal and round no pallor or injection. No icterus ENT, Mouth: Mucous membranes dry. Pharynx without erythema or exudate. TM Clear. Neck: No adenopathy. Supple. No JVD. Trachea in midline. Respiratory: There are no retractions, lungs are clear to auscultation. Cardiovascular: Regular rate and rhythm, no murmur. Abdomen: Soft and nontender, no masses, bowel sounds normal. Neurological: Ox3. No motor weakness. Sensation intact. Gait nl. Skin: Warm and dry, no rashes. Musculoskeletal: No joint swelling. There is a spastic like quality to reflexes which are markedly accentuated at 4/4 for her patellar versus 2/4 for her biceps and triceps. There is no spontaneous clonus nor precipitated clonus on exam of the ankles. When I attempt to examine her thigh and hip flexors it is if she stiff. This is not present in the upper extremities. Extremities: No edema. Homans sign negative. No cords. Psychiatric: Normal affect. Patient is oriented X 3, there is no agitation. At times anxious, though easily redirectable. Constitutional: Initial Vital Signs Temperature (C) 36.5 C 11/10/16 00:05 Heart Rate 83 11/10/16 00:05 Respiratory Rate 20 11/10/16 00:05 Blood Pressure 105/76 11/10/16 00:05 O2 Sat (%) 97 11/10/16 00:05 O2 Delivery Mode Room Air Allergies/Adverse Reactions: Penicillins Allergy (Intermediate, Verified 11/10/16 00:14) Hives Home Medications: Medication Instructions Recorded Omeprazole 09/09/16 Copaxone 11/03/16 Cymbalta 11/10/16 Medical Decision Making ED Course/Re-evaluation: Initially, she was given a dose of 25 mg p.o. Benadryl. At 45 minutes there is really no substantial improvement. She had persistent hyperreflexia without clonus of the ankle or ocular findings. This is predominantly lower extremity, with spastic hyperreflexia. Clinical findings of the spastic like hyperreflexia lower extremities more so than upper extremities even though there is no ankle clonus, diaphoresis, or ocular clonus to me suggests more that were dealing with a [id number] serotonin syndrome. Thus, we will proceed onto Ativan and observed for the next few hours. As she is having an excellent response, is not any diuretics, and his young there is no need at this point time to pursue a hyponatremia diagnosis as that is been seen with Cymbalta in the elderly. She was given Ativan 1 mg sublingual. Recheck approximately 50 minutes later. There is substantial improvement with less rigidity, less spasticity of the reflex lower extremity and overall no tremor. We discussed watchful waiting versus going home. She does not should get picked up until approximately 6:00 a.m. thus will go ahead and observe for further improvement versus deterioration. Checked again, for a 4th time at 6:00 a.m., she has done really quite well. There has been no recurrences of her symptoms. The spasticity to lower extremities has cleared completely. Her reflexes though prominent are no longer hyperactive and there is no spasticity associated with such. She feels well and is ready to go. She will have a to go pack edge of Ativan should symptoms recur later today. I have cautioned her not to drive for 16 hours after last dose of these medications. She is not to take the Cymbalta in the next 48 hours, but instead confer with her neurologist as the best course of action going forward. - Data Points Medications Given: Discontinued Medications Diphenhydramine HCl (Benadryl) 25 mg PO EDNOW ONE Stop: 11/10/16 00:18 Last Admin: 11/10/16 00:25 Dose: 25 mg Lorazepam (Ativan) 1 mg SL EDNOW ONE Stop: 11/10/16 01:06 Last Admin: 11/10/16 01:12 Dose: 1 mg Lorazepam (Ativan 1 Mg Prepack#4) 1 btl TAKEHOME EDNOW ONE Stop: 11/10/16 06:12 Last Admin: 11/10/16 06:13 Dose: 1 btl Departure - Departure Disposition: Home, Routine, Self-Care Clinical Impression: Serotonin syndrome Condition: Good Instructions: Lorazepam (By mouth), Serotonin Syndrome (ED) Additional Instructions: Take additional Ativan if similar symptom start later today. However, if the Ativan is not effective at that point in time than you will need to come in for recheck. Please note, Ativan is sedating you're not allowed to drive for 18 hours after last dose. Your clear to take her Cymbalta tomorrow morning November 15. Referrals: Patient,NotPresent [Primary Care Provider] - As per Instructions
[2016-11-10] MEDS ORDERED: LORazepam 1 MG TAB SL ONE (01:05)
[2016-11-10 06:06] VITALS: BP 111/67; PULSE 82; RESP 16; O2SAT 95
[2016-11-10] MEDS ORDERED: LORAZEPAM 1 MG PREPACK#4 BTL TAKEHOME ONE (06:11)
== END 2016-11-10 06:19 | disposition home or self-care (01) ==
LOC: CED 00:05
DX: G25.79 Other drug induced movement disorders (principal); J45.909 Unspecified asthma, uncomplicated; T45.0X5A Adverse effect of antiallergic and antiemetic drugs, initial encounter; Z87.891 Personal history of nicotine dependence

== ENCOUNTER 2016-11-30 21:41 | Emergency (ER) | payer MEDICAID ==
[2016-11-30 22:07] VITALS: RESP 16
--- NOTE | 2016-11-30 22:34 | EDPHY ---
H & P Stated Complaint: tingling legs,arms,and face for 3 days,difficulty swallowing, blurry vision, Time Seen by Provider: 11/30/16 22:19 HPI/ROS: This patient was recently diagnosed with MS in September and presents with new onset of facial tingling for the past 3 days as well as a feeling of laryngeal tightness "like knot in the throat." She also has associated feeling of tingling in her scalp and new onset over the past few days of mild blurring in vision in her left eye. With her MS so far she has had tingling in the scalp and all 4 extremities which she also has currently but this is the 1st time she has had any facial symptoms or laryngeal symptoms. She states that time that the throat discomfort is 7/10 in intensity. She notes no exacerbating or alleviating factors. She has had multiple visits to the emergency department recently which I reviewed including presyncope and nausea on October 21 with normal CBC, CMP, TSH HCG at that time. A visit on October 23 with medication intolerance to Tecfidera that was causing nausea and vomiting and into his placed a month ago on Copaxone which she is tolerating. Her most recent visit was on November 10, 2016 for anxiety versus mild serotonin syndrome-potential Reglan and an Zoloft interaction. Her most recent MRI of the brain was on October 18, 2016 which showed deep white matter lesions periventricular area consistent with demyelinating illness such as MS. Source: Patient Exam Limitations: No limitations - Personal History Current Tetanus Diphtheria and Acellular Pertussis (TDAP): Yes Tetanus Vaccine Date: 2015 - Medical/Surgical History Hx Asthma: Yes Hx Chronic Respiratory Disease: No Hx Diabetes: No Hx Cardiac Disease: No Hx Renal Disease: No Hx Cirrhosis: No Hx Alcoholism: No Hx HIV/AIDS: No Hx Splenectomy or Spleen Trauma: No Other PMH: Med hx-PE-08/27/2016 - Xarelto until end november. H-pylori-09/11/2016 - now on Omeprazole 20 mg bid. 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 Depression Anxiety Asthma. Surg-c-sect - Social History Smoking Status: Former smoker Alcohol Use: None Drug Use: None - Physical Exam Exam: General Appearance: Pleasant black female Alert, no distress. Eyes: Pupils equal and round no pallor or injection. Optic fundi: Appreciate no papilledema or other retinal changes visual acuity: 20/40 OS, 20/30 right eye, 20/20 both eyes with correction ENT, Mouth: Mucous membranes moist. No pharyngeal erythema. No dysphonia. No drooling or stridor. Ears are clear bilaterally. Nose is clear. Respiratory: There are no retractions, lungs are clear to auscultation. Cardiovascular: Regular rate and rhythm. No murmur gallop rub. Gastrointestinal: Abdomen is soft and nontender, no masses, bowel sounds normal. Neurological: GCS 15. Cranial nerves 2-12 grossly intact. She has no pronator drift. Cerebellar exam is intact is judging by her symmetric rapid hand movements bilaterally. She has full strength in bilateral upper and lower extremities visual wilson are full and normal bilaterally. Skin: Warm and dry, no rashes. Musculoskeletal: Neck is supple nontender. Extremities are symmetrical, full range of motion. Psychiatric: Mildly anxious affect. Otherwise mood is normal. DIFFERENTIAL DIAGNOSIS: After history and physical exam differential diagnosis was considered for viral pharyngitis, strep, MS symptoms or progression, anxiety , optic neuritis Constitutional: Initial Vital Signs Temperature (C) 37 C 11/30/16 22:04 Heart Rate 73 11/30/16 22:04 Respiratory Rate 16 11/30/16 22:04 Blood Pressure 130/76 H 11/30/16 22:04 O2 Sat (%) 100 11/30/16 22:04 O2 Delivery Mode Room Air Allergies/Adverse Reactions: Penicillins Allergy (Intermediate, Verified 11/30/16 22:03) Hives Home Medications: Medication Instructions Recorded Omeprazole 09/09/16 Copaxone 11/03/16 Cymbalta 11/10/16 Medical Decision Making ED Course/Re-evaluation: Rapid strep: Is negative I discussed the case in consult with Dr. Aaron Nieto-neurologist at [facility] who suggests that we proceed with MRI with and without contrast of the brain to look for any active enhancement in if there is active enhancement then admission for Solu-Medrol steroid bolus at 1 g a day for 3-5 days Discussion: Patient with known history of MS with new vision change, facial paresthesias warranting imaging to evaluate for potential progression of MS that would warrant steroids. I discussed the case with Dr. Cummings at [facility] who accepts the patient for transfer - Data Points Laboratory Results: 11/30/16 11/30/16 Unknown 22:30 Group A Strep Screen NEGATIVE (NEGATIVE) Group A Strep DNA Pending Departure - Departure Disposition: Home, Routine, Self-Care Clinical Impression: Facial paresthesia, Vision changes, Multiple sclerosis Condition: Good Instructions: Blurred Vision (ED) Additional Instructions: Diagnoses: 1. Left eye vision changes 2. Facial paresthesias 3. Laryngeal pain 4. MS Plan: Proceed to [facility] for MRI of your brain with and without contrast. Referrals: Darlene Vasquez MD [Primary Care Provider] - As per Instructions
[2016-11-30 23:24] LABS: % IMMATURE GRANULYOCYTES 0.3 % (0.0-1.1); ABSOLUTE IMMATURE GRANULOCYTES 0.03 10^3/uL (0.00-0.10); ADD DIFF? NO; ADD MORPH? NO; ADD SCAN? NO; ATYPICAL LYMPHOCYTE FLAG 10 (0-99); FRAGMENT RBC FLAG 0 (0-99); LEFT SHIFT FLG 0 (0-99); LIPEMIA HEMOLYSIS FLAG 80 (0-99); MEAN CELL HEMOGLOBIN 28.4 pg (27.9-34.1); MEAN CELL HEMOGLOBIN CONCENTR. 32.4 g/dL (32.4-36.7); MEAN CELL VOLUME 87.7 fL (81.5-99.8); MEAN PLATELET VOLUME 9.4 fL (8.7-11.7); PLATELET CLUMPS FLAG 0 (0-99); PLATELET COUNT 384 10^3/uL (150-400); RED BLOOD CELL COUNT 4.22 10^6/uL (4.18-5.33)
[2016-11-30 23:36] LABS: ANION GAP 10 mEq/L (8-16); CALCIUM 9.2 mg/dL (8.5-10.4); CARBON DIOXIDE 24 mEq/l (22-31); CHLORIDE 104 mEq/L (97-110); CREATININE 0.8 mg/dL (0.6-1.0); GLOMERULAR FILTRATION RATE > 60; GLUCOSE 83 mg/dL (70-100); POTASSIUM 4.2 mEq/L (3.5-5.2); SODIUM 138 mEq/L (134-144)
[2016-12-01] MEDS ORDERED: GADOBUTROL 10 ML VIAL IVP ONE (01:07)
[2016-12-01 02:19] VITALS: TEMP 97.9; O2SAT 96
--- NOTE | 2016-12-01 03:07 | EDPHY ---
H & P Stated Complaint: tingling legs,arms,and face for 3 days,difficulty swallowing, blurry vision, Time Seen by Provider: 11/30/16 22:19 HPI/ROS: HPI The patient presents from the [facility] for evaluation and MRI of her brain. She has a history of multiple sclerosis, currently on treatment, who presents with several days of scalp tingling, sore throat, vision changes which she describes as blurriness. She was evaluated, neurology was consulted and recommended MRI of brain. If acute lesions were found, then [facility] REVIEW OF SYSTEMS Constitutional: No fever, no chills. Eyes: No discharge. ENT: Positive for sore throat. Cardiovascular: No chest pain, no palpitations. Respiratory: No cough, no shortness of breath. Gastrointestinal: No abdominal pain, no vomiting. Genitourinary: No hematuria. Musculoskeletal: No back pain. Skin: No rashes. Neurological: No headache. PMHx: Multiple sclerosis PHYSICAL General Appearance: Alert, no distress Eyes: Pupils equal and round no pallor or injection ENT, Mouth: Mucous membranes moist Respiratory: There are no retractions, lungs are clear to auscultation Cardiovascular: Regular rate and rhythm Gastrointestinal: Abdomen is soft and non-tender, no masses, bowel sounds normal Neurological: A&O, moves all extremities Skin: Warm and dry, no rashes Musculoskeletal: Neck is supple non tender Extremities: symmetrical, full range of motion Psychiatric: Patient is oriented X 3, there is no agitation Source: Patient Exam Limitations: No limitations - Personal History Current Tetanus Diphtheria and Acellular Pertussis (TDAP): Yes Tetanus Vaccine Date: 2015 - Medical/Surgical History Hx Asthma: Yes Hx Chronic Respiratory Disease: No Hx Diabetes: No Hx Cardiac Disease: No Hx Renal Disease: No Hx Cirrhosis: No Hx Alcoholism: No Hx HIV/AIDS: No Hx Splenectomy or Spleen Trauma: No Other PMH: Med hx-PE-08/27/2016 - Xarelto until end november. H-pylori-09/11/2016 - now on Omeprazole 20 mg bid. 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 Depression Anxiety Asthma. Surg-c-sect - Social History Smoking Status: Former smoker Constitutional: Initial Vital Signs Temperature (C) 37 C 11/30/16 22:04 Heart Rate 73 11/30/16 22:04 Respiratory Rate 16 11/30/16 22:04 Blood Pressure 130/76 H 11/30/16 22:04 O2 Sat (%) 100 11/30/16 22:04 O2 Delivery Mode Room Air Allergies/Adverse Reactions: Penicillins Allergy (Intermediate, Verified 11/30/16 22:03) Hives Home Medications: Medication Instructions Recorded Omeprazole 09/09/16 Copaxone 11/03/16 Cymbalta 11/10/16 Medical Decision Making - Diagnostics Imaging Results: MRI of brain performed with and without contrast demonstrates lesions consistent with MS, no changes as compared to prior MRI, no acute changes, discussed with the radiologist. Imaging: Discussed imaging studies w/ erp project manager Radiologist Differential Diagnosis: This is a 31-year-old female, transferred from [facility] see with history of MS who presents with facial paresthesias, throat soreness, vision change, concerning for MS flare. In the emergency room, MRI of brain was obtained which does show lesions consistent with MS, however no acute changes compared to her prior MRI. I reassessed the patient, she feels well, her facial symptoms have resolved and her vision is normal. The cause of her symptoms is not clear. I have encouraged her to follow up with her neurologist. I do not think she needs to be admitted for treatment with steroids given her resolution of symptoms and unchanged MRI. She is in agreement with this plan. - Data Points Laboratory Results: Laboratory Results 11/30/16 23:15 11/30/16 23:15 11/30/16 11/30/16 11/30/16 Unknown 23:15 23:15 WBC 8.81 10^3/uL 10^3/uL (3.80-9.50) RBC 4.22 10^6/uL 10^6/uL (4.18-5.33) Hgb 12.0 g/dL L g/dL (12.6-16.3) Hct 37.0 % L % (38.0-47.0) MCV 87.7 fL fL (81.5-99.8) MCH 28.4 pg pg (27.9-34.1) MCHC 32.4 g/dL g/dL (32.4-36.7) RDW 12.0 % % (11.5-15.2) Plt Count 384 10^3/uL 10^3/uL (150-400) MPV 9.4 fL fL (8.7-11.7) Neut % (Auto) 58.9 % % (39.3-74.2) Lymph % (Auto) 26.8 % % (15.0-45.0) Lander % (Auto) 8.9 % % (4.5-13.0) Eos % (Auto) 4.4 % % (0.6-7.6) Baso % (Auto) 0.7 % % (0.3-1.7) Nucleat RBC Rel Count 0.0 % % (0.0-0.2) Absolute Neuts (auto) 5.19 10^3/uL 10^3/uL (1.70-6.50) Absolute Lymphs (auto) 2.36 10^3/uL 10^3/uL (1.00-3.00) Absolute Monos (auto) 0.78 10^3/uL 10^3/uL (0.30-0.80) Absolute Eos (auto) 0.39 10^3/uL 10^3/uL (0.03-0.40) Absolute Basos (auto) 0.06 10^3/uL 10^3/uL (0.02-0.10) Absolute Nucleated RBC 0.00 10^3/uL 10^3/uL (0-0.01) Immature Gran % 0.3 % % (0.0-1.1) Immature Gran # 0.03 10^3/uL 10^3/uL (0.00-0.10) Sodium 138 mEq/L mEq/L (134-144) Potassium 4.2 mEq/L mEq/L (3.5-5.2) Chloride 104 mEq/L mEq/L (97-110) Carbon Dioxide 24 mEq/l mEq/l (22-31) Anion Gap 10 mEq/L mEq/L (8-16) BUN 12 mg/dL mg/dL (7-23) Creatinine 0.8 mg/dL mg/dL (0.6-1.0) Estimated GFR > 60 Glucose 83 mg/dL mg/dL (70-100) Calcium 9.2 mg/dL mg/dL (8.5-10.4) Group A Strep Screen Group A Strep DNA Pending 11/30/16 22:30 WBC RBC Hgb Hct MCV MCH MCHC RDW Plt Count MPV Neut % (Auto) Lymph % (Auto) Lander % (Auto) Eos % (Auto) Baso % (Auto) Nucleat RBC Rel Count Absolute Neuts (auto) Absolute Lymphs (auto) Absolute Monos (auto) Absolute Eos (auto) Absolute Basos (auto) Absolute Nucleated RBC Immature Gran % Immature Gran # Sodium Potassium Chloride Carbon Dioxide Anion Gap BUN Creatinine Estimated GFR Glucose Calcium Group A Strep Screen NEGATIVE (NEGATIVE) Group A Strep DNA Departure - Departure Disposition: Home, Routine, Self-Care Clinical Impression: Facial paresthesia, Vision changes, Multiple sclerosis Condition: Good Instructions: Blurred Vision (ED) Additional Instructions: Your MRI today did not show any active new lesions from multiple sclerosis. You should follow up with your neurologist in the next few days. Please return to the emergency room if your worse in any way. Referrals: Darlene Vasquez MD [Primary Care Provider] - As per Instructions
[2016-12-01 03:16] VITALS: BP 110/55; PULSE 66
== END 2016-12-01 03:16 | disposition home or self-care (01) ==
LOC: CED 21:41
DX: R20.2 Paresthesia of skin (principal); G35 Multiple sclerosis; H57.8 Other specified disorders of eye and adnexa; J45.909 Unspecified asthma, uncomplicated; Z87.891 Personal history of nicotine dependence
CPT/HCPCS: 80048-PO; 85025-PO; 87880-PO; A9585

== ENCOUNTER 2017-02-01 18:29 | Emergency (ER) | payer MEDICAID ==
[2017-02-01 18:42] VITALS: BP 120/72; PULSE 79; RESP 16; TEMP 98.4; O2SAT 98
--- NOTE | 2017-02-01 18:50 | EDPHY ---
H & P Time Seen by Provider: 02/01/17 18:35 HPI/ROS: 31-year-old female with a history of MS presents complaining of a small mobile lump behind her right ear, and bilateral ear pain right greater than left for several days. She denies cold symptoms she denies fevers or chills, she denies neck pain she denies sore throat she denies scalp infection. Review of systems As per HPI-bilateral ear pain General no fever no chills no weakness HEENT no eye pain no eye discharge. No eye redness, no sore throat Respiratory no cough, no shortness of breath Cardiac no chest pain, no peripheral edema GI no abdominal pain, no diarrhea, no constipation, no nausea, no vomiting no flank pain, no hematuria, no dysuria Musculoskeletal no myalgias, no joint pain Heme no easy bruising, no easy bleeding Endo no polyuria, no polydipsia Skin no rashes, no pruritus Neuro no syncope, no dizziness, no headaches Psych is no suicidal ideation, no homicidal ideation Past Medical/Surgical History: MS Social History: Denies alcohol or drug use Smoking Status: Former smoker Physical Exam: 31-year-old female alert and oriented no acute distress nontoxic appearance afebrile Atraumatic normocephalic Extraocular muscles intact, anicteric Erythematous canals bilaterally, TMs clear Small 8 mm mole bile lymph node posterior to right ear Neck supple Lungs clear to auscultation bilaterally Heart regular rate and rhythm Abdomen NABS soft Extremities no cyanosis clubbing or edema Constitutional: Initial Vital Signs Temperature (C) 36.9 C 02/01/17 18:37 Heart Rate 79 02/01/17 18:37 Respiratory Rate 16 02/01/17 18:37 Blood Pressure 120/72 02/01/17 18:37 O2 Sat (%) 98 02/01/17 18:37 O2 Delivery Mode Room Air Allergies/Adverse Reactions: Penicillins Allergy (Intermediate, Verified 02/01/17 18:36) Hives Home Medications: Medication Instructions Recorded Copaxone 11/03/16 Cymbalta 11/10/16 AZITHROMYCIN [Z-PACK] 250 mg PO DAILY #6 tab 02/01/17 Neomy Sulf/Polymyx B Sulf/Hc 4 drops OT TID #1 solution 02/01/17 [Cortisporin Otic (*)] Medical Decision Making ED Course/Re-evaluation: Patient seen and evaluated for bilateral ear pain and lymph node behind right ear Differential diagnosis considered Otitis media, otitis externa, posterior auricular lymphadenopathy, scalp infection, pharyngitis Impression Bilateral otitis externa right greater than left Right posterior auricular lymphadenopathy Plan Cortisporin otic 4 drops three times daily bilateral ears x7 days Azithromycin Follow up with primary care physician Departure - Departure Disposition: Home, Routine, Self-Care Clinical Impression: Otitis externa, Posterior auricular lymphadenopathy Condition: Good Instructions: Otitis Externa (ED), Lymphadenopathy (ED) Referrals: Darlene Vasquez MD [Primary Care Provider] - As per Instructions Prescriptions: AZITHROMYCIN [Z-PACK] 250 mg PO DAILY #6 tab Neomy Sulf/Polymyx B Sulf/Hc [Cortisporin Otic (*)] 4 drops OT TID #1 solution
== END 2017-02-01 19:02 | disposition home or self-care (01) ==
LOC: CED 18:29
DX: H60.93 Unspecified otitis externa, bilateral (principal); R59.1 Generalized enlarged lymph nodes; Z87.891 Personal history of nicotine dependence

== ENCOUNTER 2017-04-28 18:38 | Emergency (ER) | payer MEDICAID ==
[2017-04-28 18:49] VITALS: BP 125/78; PULSE 91; RESP 18; TEMP 97.7; O2SAT 96
[2017-04-28] MEDS ORDERED: AZITHROMYCIN 250 MG TAB PO ONE (19:04)
[2017-04-28] MEDS ORDERED: IBUPROFEN 600 MG TAB PO ONE (19:04)
[2017-04-28] MEDS ORDERED: ACETAMINOPHEN 500 MG TAB PO ONE (19:05)
--- NOTE | 2017-04-28 19:06 | EDPHY ---
H & P Time Seen by Provider: 04/28/17 19:00 HPI/ROS: This patient complains of a sore throat onset yesterday moderate intensity baseline more severe when she swallows. She tried lemon juice his mother homeopathic remedies without improvement and reports no other exacerbating or alleviating factors. She feels like she may have strep throat came in for evaluation. ROS: No high fevers or chills. HEENT: No significant nasal congestion. No ear pain. No change in her voice. The Pulmonary: No cough shortness of breath Cardiac: No heart palpitations or lightheadedness. Integumentary: No skin rash 5 point ROS is otherwise negative Smoking Status: Former smoker Physical Exam: Physical Exam Vital signs are normal. General: No acute distress HEENT: Nose: Clear bilaterally. No sinus tenderness to percussion. Ears: External canals and tympanic membranes are clear with no erythema or abnormal findings bilaterally. Oropharynx: Moderate erythema of the posterior pharynx with tonsillar swelling and mild exudates in the left Eyes: Pupils equal and react to light. Extraocular motions are intact. Neck: Supple with no meningismus. No lymphadenopathy Lungs: Clear to auscultation bilaterally with no rales, rhonchi or wheeze. No respiratory distress. Cardiac: Regular rate and rhythm with no murmur gallop or rub Skin: No rash or pallor. Neuro: Alert with no focal deficits noted. Initial differential diagnosis: Strep pharyngitis, viral pharyngitis Constitutional: Initial Vital Signs Temperature (C) 36.5 C 04/28/17 18:47 Heart Rate 91 04/28/17 18:47 Respiratory Rate 18 04/28/17 18:47 Blood Pressure 125/78 H 04/28/17 18:47 O2 Sat (%) 96 04/28/17 18:47 O2 Delivery Mode Room Air Allergies/Adverse Reactions: Penicillins Allergy (Intermediate, Verified 04/28/17 18:46) Hives Home Medications: Medication Instructions Recorded Copaxone 11/03/16 Cymbalta 11/10/16 Azithromycin [Zithromax] 250 mg PO DAILY #4 tab 04/28/17 MDM/Departure - MDM Diagnostics: Rapid strep is positive Medications Given: Discontinued Medications Acetaminophen (Tylenol) 1,000 mg PO EDNOW ONE Stop: 04/28/17 19:06 Last Admin: 04/28/17 19:15 Dose: 1,000 mg Azithromycin (Zithromax) 500 mg PO EDNOW ONE PRN Reason: Protocol Stop: 04/28/17 19:05 Last Admin: 04/28/17 19:15 Dose: 500 mg Ibuprofen (Motrin) 600 mg PO EDNOW ONE Stop: 04/28/17 19:05 Last Admin: 04/28/17 19:15 Dose: 600 mg ED Course/Re-evaluation: I counseled patient regarding strep pharyngitis. Discussion: No evidence of peritonsillar abscess, sepsis or other complicating factors in this patient. She is given a 1st dose of Zithromax. - Depart Disposition: Home, Routine, Self-Care Clinical Impression: Strep pharyngitis Condition: Good Instructions: Strep Throat (ED) Additional Instructions: Diagnosis: Strep pharyngitis Plan: Drink plenty fluids Ibuprofen Tylenol for pain as needed Zithromax antibiotic Return for any significant worsening despite treatment plan Stand Alone Forms: Work Excuse Prescriptions: Azithromycin [Zithromax] 250 mg PO DAILY #4 tab Referrals: Darlene Vasquez MD [Primary Care Provider] - As per Instructions
== END 2017-04-28 19:21 | disposition home or self-care (01) ==
LOC: CED 18:38
DX: J02.0 Streptococcal pharyngitis (principal); Z87.891 Personal history of nicotine dependence
CPT/HCPCS: 87880-PO

== ENCOUNTER 2017-06-12 08:20 | Emergency (ER) | payer MEDICAID ==
--- NOTE | 2017-06-12 09:32 | EDPHY ---
H & P Smoking Status: Former smoker Time Seen by Provider: 06/12/17 09:10 HPI/ROS: CHIEF COMPLAINT: Abdominal pain, aphasic HISTORY OF PRESENT ILLNESS: 31-year-old female with a history of multiple sclerosis presents to the emergency department by private vehicle complaining of lower abdominal pain. She states that the pain began abruptly at 2:00 a.m.. It is been waxing and waning. She states that time is it is severe. Her last menstrual period was 3 weeks ago. She has had no vaginal bleeding or spotting. No urinary symptoms. No back pain. No reported trauma. She had an IUD placed 2 months ago and is concerned about the IUD. The patient has a history of multiple sclerosis and has been taking her medication as prescribed. She states since this abdominal pain started, she is having difficulty speaking. She is not having a difficulty swallowing. Denies chest pain or difficulty breathing. History was obtained from friend at bedside as well as her typing messages into her phone. REVIEW OF SYSTEMS: Constitutional: No fever, no chills. Eyes: No double or blurry vision. ENT: No sore throat. Respiratory: No cough, no shortness of breath. Cardiac: No chest pain. Gastrointestinal: Abdominal pain as above. No vomiting or diarrhea Genitourinary: No dysuria. Musculoskeletal: No neck or back pain. Skin: No rashes. Neurological: No headache. 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 Afebrile. The patient is unable to speak. She is typing into her phone to communicate. She otherwise has a normal neurologic examination. She has normal gait. Eyes: Pupils equal and round. Extraocular motions are all intact. ENT: Mouth: Mucous membranes moist. Respiratory: No wheezing, rhonchi, or rales, lungs are clear to auscultation. Cardiovascular: Regular rate and rhythm. Gastrointestinal: Pain with palpation to the suprapubic area as well as in the right and left lower quadrant. No rebound tenderness. Mild bilateral CVA tenderness. Neurological: Alert and oriented x 3, cranial nerves II through XII grossly intact Skin: Warm and dry, no rashes. Musculoskeletal: Nontender to palpate along the cervical, thoracic or lumbar spine. Neck is supple. Extremities: Full range of motion and no peripheral edema. Psychiatric: Patient is oriented X 3, there is no agitation. (Claritza Persaud) Constitutional: Initial Vital Signs Temperature (C) 37 C 06/12/17 08:33 Heart Rate 88 06/12/17 08:33 Respiratory Rate 16 06/12/17 08:33 Blood Pressure 110/75 06/12/17 08:33 O2 Sat (%) 96 06/12/17 08:33 O2 Delivery Mode Room Air O2 (L/minute) 2 Allergies/Adverse Reactions: Penicillins Allergy (Intermediate, Verified 06/12/17 08:32) Hives Home Medications: Medication Instructions Recorded Copaxone 11/03/16 Cymbalta 11/10/16 Medical Decision Making - Diagnostics Imaging: Discussed imaging studies w/ call center nurse Radiologist - Diagnostics Imaging Results: Imaging Impressions Abdomen Ultrasound 06/12/17 09:43 Impression: Appendix is not identified. Findings and recommendations discussed with Emergency Department physician, Claritza Persaud PA-C at 1142 hours on June 12, 2017. Final report concurs with initial preliminary interpretation. Pelvic/Renal Ultrasound 06/12/17 09:43 Impression: 1. IUD appears in good position. 2. No ovarian torsion or significant free fluid. 3. Possible right hemorrhagic cyst measuring 2.7 x 1.2 cm. Findings and recommendations discussed with Emergency Department physician, Claritza Persaud PA-C at 1144 hours on June 12, 2017. Final report concurs with initial preliminary interpretation. Brain MRI 06/12/17 10:23 Impression: Periventricular and deep hemispheric white matter lesions with the appearance and pattern compatible with the patient's history of demyelinating disease, multiple sclerosis. No evidence for abnormal enhancement to indicate an active lesion. No definite new lesion is visualized. No evidence for acute infarct. Results called and discussed with Claritza Persaud PA-C on June 12, 2017 at 1549 hours. ED Course/Re-evaluation: A 31-year-old female presents to the emergency department with suprapubic abdominal pain that began abruptly earlier this morning. The patient also noted that when she woke up this morning she was unable to speak. Patient has a history of multiple sclerosis. I spoke with her neurology office and spoke with Dr. Solitario De La Rosa, on-call neurologist, who recommended obtaining MRI of the brain both without and with contrast to evaluate for possible new demyelinating lesions with her multiple sclerosis. MRI of the brain is unchanged from November of 2016. The patient was monitored for several hours in the emergency department. Upon discharge, the patient was able to talk normally. She understands that her pelvic ultrasound which revealed a small hemorrhagic cyst will require follow- up. She was given OBGYN for follow-up. She feels comfortable being discharged home. Her pain is well controlled. (Claritza Persaud) Differential Diagnosis: Including but not limited to ovarian cyst, ovarian torsion, ectopic , urinary tract infection, pyelonephritis Including but not limited to hypoglycemia, infectious process, electrolyte abnormality, head injury and intoxicants. (Claritza Persaud) Other Provider: PHYSICIAN DOCUMENTATION: The patient was evaluated and managed by the Physician Fleet Mechanic and myself. I have reviewed the chart and agree with the findings and plan of care as documented. In addition, I examined the patient myself. History confirmed as pain is primarily suprapubic. Physical findings as follows: Patient is now able to talk although her words are hesitant. She feels like she is getting better but does not feel like she is completely back to normal. Ultrasound reviewed shows ovarian cyst and the patient is informed. Plan for MRI per neurology, she has hesitant speech but also seems very anxious. I don't think she is having stroke or seizure. Discharge with diagnosis ovarian cyst if MRI does not show acute pathology, and speech continues to improve. I am the secondary supervising physician. (Compa García) - Data Points Laboratory Results: Laboratory Results 06/12/17 09:57 06/12/17 09:57 06/12/17 06/12/17 06/12/17 09:57 09:57 09:57 WBC 7.29 10^3/uL 10^3/uL (3.80-9.50) RBC 4.64 10^6/uL 10^6/uL (4.18-5.33) Hgb 13.3 g/dL g/dL (12.6-16.3) Hct 41.1 % % (38.0-47.0) MCV 88.6 fL fL (81.5-99.8) MCH 28.7 pg pg (27.9-34.1) MCHC 32.4 g/dL g/dL (32.4-36.7) RDW 12.2 % % (11.5-15.2) Plt Count 350 10^3/uL 10^3/uL (150-400) MPV 9.3 fL fL (8.7-11.7) Neut % (Auto) 76.8 % H % (39.3-74.2) Lymph % (Auto) 15.5 % % (15.0-45.0) [place] % (Auto) 6.6 % % (4.5-13.0) Eos % (Auto) 0.3 % L % (0.6-7.6) Baso % (Auto) 0.5 % % (0.3-1.7) Nucleat RBC Rel Count 0.0 % % (0.0-0.2) Absolute Neuts (auto) 5.60 10^3/uL 10^3/uL (1.70-6.50) Absolute Lymphs (auto) 1.13 10^3/uL 10^3/uL (1.00-3.00) Absolute Monos (auto) 0.48 10^3/uL 10^3/uL (0.30-0.80) Absolute Eos (auto) 0.02 10^3/uL L 10^3/uL (0.03-0.40) Absolute Basos (auto) 0.04 10^3/uL 10^3/uL (0.02-0.10) Absolute Nucleated RBC 0.00 10^3/uL 10^3/uL (0-0.01) Immature Gran % 0.3 % % (0.0-1.1) Immature Gran # 0.02 10^3/uL 10^3/uL (0.00-0.10) Sodium 142 mEq/L mEq/L (134-144) Potassium 5.0 mEq/L mEq/L (3.5-5.2) Chloride 109 mEq/L mEq/L (97-110) Carbon Dioxide 20 mEq/l L mEq/l (22-31) Anion Gap 13 mEq/L mEq/L (8-16) BUN 13 mg/dL mg/dL (7-23) Creatinine 0.9 mg/dL mg/dL (0.6-1.0) Estimated GFR > 60 Glucose 91 mg/dL mg/dL (70-100) Calcium 9.7 mg/dL mg/dL (8.5-10.4) Beta HCG, Qual NEGATIVE Urine Color Urine Appearance Urine pH Ur Specific [place] Urine Protein Urine Ketones Urine Blood Urine Nitrate Urine Bilirubin Urine Urobilinogen Ur Leukocyte Esterase Urine RBC Urine WBC Ur Epithelial Cells Urine Bacteria Urine Mucus Urine Glucose 06/12/17 09:50 WBC RBC Hgb Hct MCV MCH MCHC RDW Plt Count MPV Neut % (Auto) Lymph % (Auto) [place] % (Auto) Eos % (Auto) Baso % (Auto) Nucleat RBC Rel Count Absolute Neuts (auto) Absolute Lymphs (auto) Absolute Monos (auto) Absolute Eos (auto) Absolute Basos (auto) Absolute Nucleated RBC Immature Gran % Immature Gran # Sodium Potassium Chloride Carbon Dioxide Anion Gap BUN Creatinine Estimated GFR Glucose Calcium Beta HCG, Qual Urine Color YELLOW Urine Appearance CLEAR Urine pH 6.0 (5.0-7.5) Ur Specific [place] 1.012 (1.002-1.030) Urine Protein NEGATIVE (NEGATIVE) Urine Ketones NEGATIVE (NEGATIVE) Urine Blood NEGATIVE (NEGATIVE) Urine Nitrate NEGATIVE (NEGATIVE) Urine Bilirubin NEGATIVE (NEGATIVE) Urine Urobilinogen NEGATIVE EU EU (0.2-1.0) Ur Leukocyte Esterase NEGATIVE (NEGATIVE) Urine RBC NONE SEEN /hpf /hpf (0-3) Urine WBC 3-5 /hpf H /hpf (0-3) Ur Epithelial Cells TRACE /lpf /lpf (NONE-1+) Urine Bacteria 2+ /hpf H /hpf (NONE SEEN) Urine Mucus TRACE /lpf /lpf (NONE-1+) Urine Glucose NEGATIVE (NEGATIVE) Medications Given: Discontinued Medications Lorazepam (Ativan Injection) 1 mg IVP EDNOW ONE Stop: 06/12/17 11:42 Last Admin: 06/12/17 11:43 Dose: 1 mg Lorazepam (Ativan Injection) 1 mg IVP EDNOW ONE Stop: 06/12/17 14:21 Last Admin: 06/12/17 14:27 Dose: 1 mg Departure - Departure Disposition: Home, Routine, Self-Care Clinical Impression: Ovarian cyst Qualifiers: Laterality: right Qualified Code(s): N83.201 - Unspecified ovarian cyst, right side Condition: Good Instructions: Ovarian Cyst (ED), Aphasia (DC) Additional Instructions: Abdominal Pain: Return to the Emergency Department immediately for increasing pain, fever, vomiting, or if not completely better in 8-12 hours. Follow-up with OBGYN to discuss ovarian cyst. He will likely need repeat ultrasound to further evaluate this. Follow up with your neurologist. Referrals: Roseann Fregoso DO [Doctor of Osteopathy] - 5-7 days, call for appt. (Workforce Development Program Director stoneworking sander )
[2017-06-12 10:11] LABS: % IMMATURE GRANULYOCYTES 0.3 % (0.0-1.1); ABSOLUTE IMMATURE GRANULOCYTES 0.02 10^3/uL (0.00-0.10); ADD DIFF? NO; ADD MORPH? NO; ADD SCAN? NO; ATYPICAL LYMPHOCYTE FLAG 10 (0-99); FRAGMENT RBC FLAG 0 (0-99); HEMATOCRIT 41.1 % (38.0-47.0); HEMOGLOBIN 13.3 g/dL (12.6-16.3); LEFT SHIFT FLG 0 (0-99); LIPEMIA HEMOLYSIS FLAG 80 (0-99); MEAN CELL HEMOGLOBIN 28.7 pg (27.9-34.1); MEAN CELL HEMOGLOBIN CONCENTR. 32.4 g/dL (32.4-36.7); MEAN CELL VOLUME 88.6 fL (81.5-99.8); MEAN PLATELET VOLUME 9.3 fL (8.7-11.7); PLATELET CLUMPS FLAG 30 (0-99); PLATELET COUNT 350 10^3/uL (150-400); RED BLOOD CELL COUNT 4.64 10^6/uL (4.18-5.33); RED CELL DISTRIBUTION WIDTH 12.2 % (11.5-15.2)
[2017-06-12 10:13] LABS: COLOR YELLOW; LEUKOCYTE ESTERASE,URINE NEGATIVE (NEGATIVE); NITRITE,URINE NEGATIVE (NEGATIVE)
[2017-06-12 10:20] LABS: BACTERIA 2+ /hpf (NONE SEEN); MUCUS TRACE /lpf (NONE-1+)
[2017-06-12 10:21] LABS: RBC,URINE NONE SEEN /hpf (0-3)
[2017-06-12 10:30] LABS: ANION GAP 13 mEq/L (8-16); CALCIUM 9.7 mg/dL (8.5-10.4); CARBON DIOXIDE 20 mEq/l (22-31); CHLORIDE 109 mEq/L (97-110); CREATININE 0.9 mg/dL (0.6-1.0); GLOMERULAR FILTRATION RATE > 60; GLUCOSE 91 mg/dL (70-100); SODIUM 142 mEq/L (134-144)
[2017-06-12] MEDS ORDERED: LORazepam 2 MG/ML INJ IVP ONE ×2 (11:41→14:20)
[2017-06-12] MEDS ORDERED: GADOBUTROL 10 ML VIAL IVP ONE ×2 (11:57→14:45)
[2017-06-12 14:18] VITALS: TEMP 99.1
[2017-06-12 16:17] VITALS: BP 106/80; PULSE 82; RESP 18; O2SAT 96
== END 2017-06-12 16:17 | disposition home or self-care (01) ==
DX: N83.201 Unspecified ovarian cyst, right side (principal); J45.909 Unspecified asthma, uncomplicated
CPT/HCPCS: 96374; A9585; J2060

== ENCOUNTER 2017-06-15 07:28 | Emergency (ER) | payer MEDICAID ==
[2017-06-15 07:36] VITALS: BP 115/75; PULSE 70; RESP 20; TEMP 98.6
--- NOTE | 2017-06-15 07:50 | EDPHY ---
H & P Time Seen by Provider: 06/15/17 07:35 HPI/ROS: This patient complains of a sore throat. She noticed this upon awakening to 2.5 hrs ago. She reports associated hoarse voice. For 2 days now she has also had coryza and a mild dry cough. In addition, she also reports bilateral ear pressure this morning. She describes her throat pain as 8/10 intensity with associated odynophagia. She has not taken any [id number] analgesics for her symptoms. The patient drove herself by private vehicle for evaluation. ROS: Constitutional: No high fevers or chills. No significant fatigue. HEENT: As per HPI. Pulmonary: No shortness of breath or pleuritic pain. No sputum production with her cough. No hemoptysis. Cardiovascular: No complaints GI: No nausea vomiting or abdominal pain. Integumentary: No skin rash 7 point ROS is otherwise negative. Social History: Patient's daughter had strep throat 10 days ago. Smoking Status: Former smoker Physical Exam: Physical Exam Vital signs are normal. General: No acute distress HEENT: Nose: Clear discharge bilaterally. No sinus tenderness to percussion. Ears: External canals and tympanic membranes are clear with no erythema or abnormal findings except mild serous effusion bilaterally. Oropharynx: No erythema or exudates. She has mild hoarse voice. No drooling or stridor. Eyes: Pupils equal and react to light. Extraocular motions are intact. Neck: Supple with no meningismus. No lymphadenopathy Lungs: Clear to auscultation bilaterally with no rales, rhonchi or wheeze. No respiratory distress. Cardiac: Regular rate and rhythm with no murmur gallop or rub Skin: No rash or pallor. Neuro: Alert with no focal deficits noted. Initial differential diagnosis: Viral URI with cough and laryngitis, strep pharyngitis, doubt sinusitis or bronchitis Constitutional: Initial Vital Signs Temperature (C) 37 C 06/15/17 07:33 Heart Rate 70 06/15/17 07:33 Respiratory Rate 20 06/15/17 07:33 Blood Pressure 115/75 06/15/17 07:33 Allergies/Adverse Reactions: Penicillins Allergy (Intermediate, Verified 06/15/17 07:36) Anaphylaxis Home Medications: Medication Instructions Recorded Copaxone 11/03/16 Cymbalta 11/10/16 Benzonatate [Tessalon Pearles (RX)] 100 - 200 mg PO TID PRN #20 cap 06/15/17 Fluticasone Nasal [Flonase Nasal 2 sprays NASAL DAILY #1 mdi 06/15/17 [place]] MDM/Departure - MDM Diagnostics: Rapid strep is negative ED Course/Re-evaluation: Discussion: Patient likely has parainfluenza or similar virus causing her laryngitis, coryza and dry cough. I counseled her regarding this. Her rapid strep is negative. She also has ear pressure the think is attributable to mild serous otitis. Will treat this with Flonase and treat her cough Tessalon Perles. - Depart Disposition: Home, Routine, Self-Care Clinical Impression: Laryngitis, Cough Serous otitis media Qualifiers: Chronicity: acute Laterality: bilateral Recurrence: not specified as recurrent Qualified Code(s): H65.03 - Acute serous otitis media, bilateral Condition: Good Instructions: Laryngitis (ED), Serous Otitis Media (ED) Additional Instructions: Diagnoses: 1. Laryngitis 2. Serous otitis (clear fluid in inner years) 3. Cough Plan: Humidifier Flonase steroid nasal spray (use for 10-14 days) Tessalon Perles if needed for cough Ibuprofen and Tylenol for your pain as needed Return for any significant worsening despite the treatment plan. Prescriptions: Benzonatate [Tessalon Pearles (RX)] 100 - 200 mg PO TID PRN #20 cap PRN Reason: cough Fluticasone Nasal [Flonase Nasal [place]] 2 sprays NASAL DAILY #1 mdi Referrals: Darlene Vasquez MD [Primary Care Provider] - As per Instructions
== END 2017-06-15 08:03 | disposition home or self-care (01) ==
LOC: CED 07:28
DX: J04.0 Acute laryngitis (principal); H65.03 Acute serous otitis media, bilateral; Z87.891 Personal history of nicotine dependence
CPT/HCPCS: 87880-PO

== ENCOUNTER 2017-07-23 11:26 | Emergency (ER) | payer MEDICAID ==
[2017-07-23 11:32] VITALS: BP 121/79; PULSE 78; RESP 18; TEMP 97.7; O2SAT 97
--- NOTE | 2017-07-23 11:51 | EDPHY ---
H & P Stated Complaint: B ear pain since last night, sinus pressure, chills, cough Time Seen by Provider: 07/23/17 11:44 HPI/ROS: CHIEF COMPLAINT: Sinusitis HISTORY OF PRESENT ILLNESS: Patient is a 32-year-old female with a history of MS who comes to the emergency department complaining of sinus congestion, bilateral ear pain and pressure and headache. No fever but she has had chills. No body aches. No nausea vomiting. No difficulty breathing. 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 She did get a flu shot this year. REVIEW OF SYSTEMS: Constitutional: See HPI EENTM: See HPI Respiratory: denies: cough, shortness of breath Cardiac: denies: chest pain, irregular heart rate, lightheadedness, palpitations Gastrointestinal/Abdominal: denies: abdominal pain, diarrhea, nausea, vomiting, blood streaked stools Genitourinary: denies: dysuria, frequency, hematuria, pain Musculoskeletal: denies: joint pain, muscle pain Skin: denies: lesions, rash, jaundice, bruising Neurological: denies: headache, numbness, paresthesia, tingling, dizziness, weakness Hematologic/Lymphatic: denies: blood clots, easy bleeding, easy bruising Immunologic/allergic: denies: HIV/AIDS, transplant EXAM: GENERAL: Well-appearing, well-nourished and in no acute distress. HEAD: Atraumatic, normocephalic. EYES: Pupils equal round and reactive to light, extraocular movements intact, sclera anicteric, conjunctiva are normal. ENT: Erythematous tympanic membranes bilaterally, sinus congestion and mild tenderness, oropharynx with slight erythema without exudates. Moist mucous membranes. NECK: Normal range of motion, supple without lymphadenopathy or JVD. LUNGS: Breath sounds clear to auscultation bilaterally and equal. No wheezes rales or rhonchi. HEART: Regular rate and rhythm without murmurs, rubs or gallops. ABDOMEN: Soft, nontender, normoactive bowel sounds. No guarding, no rebound. No masses appreciated. BACK: No CVA tenderness, no spinal tenderness, step-offs or deformities EXTREMITIES: Normal range of motion, no pitting or edema. No clubbing or cyanosis. NEUROLOGICAL: Cranial nerves II through XII grossly intact. Normal speech, normal gait. 5/5 strength, normal movement in all extremities, normal sensation PSYCH: Normal mood, normal affect. SKIN: Warm, dry, normal turgor, no visible rashes or lesions. Source: Patient - Personal History LMP (Females 10-55): 8-14 Days Ago Current Tetanus/Diphtheria Vaccine: Yes Tetanus Vaccine Date: 2015 - Medical/Surgical History Hx Asthma: Yes Hx Chronic Respiratory Disease: No Hx Diabetes: No Hx Cardiac Disease: No Hx Renal Disease: No Hx Cirrhosis: No Hx Alcoholism: No Hx HIV/AIDS: No Hx Splenectomy or Spleen Trauma: No Other PMH: Med hx-PE-08/27/2016 H-pylori-09/11/2016 MS - nerve damage to RLE., MS. Depression Anxiety Asthma. Surg-c-sect - Family History Significant Family History: No pertinent family hx - Social History Smoking Status: Former smoker Alcohol Use: Sober Drug Use: None Constitutional: Initial Vital Signs Temperature (C) 36.5 C 07/23/17 11:29 Heart Rate 78 07/23/17 11:29 Respiratory Rate 18 07/23/17 11:29 Blood Pressure 121/79 H 07/23/17 11:29 O2 Sat (%) 97 07/23/17 11:29 O2 Delivery Mode Room Air Allergies/Adverse Reactions: Penicillins Allergy (Intermediate, Verified 07/23/17 11:37) Anaphylaxis Home Medications: Medication Instructions Recorded Copaxone 11/03/16 Cymbalta 11/10/16 Azithromycin [Zithromax] 250 mg PO DAILY #6 tab 07/23/17 Multivitamin 07/23/17 Medical Decision Making ED Course/Re-evaluation: Patient is requesting antibiotics. I will start her on a Z-Aubrey. She is happy with this. I warned her that this is may be viral and the antibiotics will not help. She understands. We discussed indications for returning. Differential Diagnosis: Partial list of the Differential diagnosis considered include but were not limited to; sinusitis, upper respiratory tract infection, otitis media, influenza, viral syndrome and although unlikely based on the history and physical exam, I also considered pneumonia, meningitis, sepsis. I discussed these differential diagnoses and the plan with the patient as well as the usual and expected course. The patient understands that the diagnosis is provisional and that in medicine we are not always correct and that further workup is often warranted. Usual and customary warnings were given. All of the patient's questions were answered. The patient was instructed to return to the emergency department should the symptoms at all worsen or return, otherwise to followup with the physician as we discussed. Departure - Departure Disposition: Home, Routine, Self-Care Clinical Impression: Sinusitis Qualifiers: Sinusitis location: maxillary Chronicity: acute Recurrence: non-recurrent Qualified Code(s): J01.00 - Acute maxillary sinusitis, unspecified Condition: Fair Instructions: Sinusitis (ED) Referrals: Darlene Vasquez MD [Primary Care Provider] - As per Instructions Prescriptions: Azithromycin [Zithromax] 250 mg PO DAILY #6 tab
== END 2017-07-23 11:59 | disposition home or self-care (01) ==
LOC: CED 11:26
DX: J01.00 Acute maxillary sinusitis, unspecified (principal); J45.909 Unspecified asthma, uncomplicated; Z87.891 Personal history of nicotine dependence